=== PATIENT | male | born 1980 | race Caucasian/White ===

== ENCOUNTER 2018-12-27 19:45 | Emergency (ER) | payer OTHER, SELFPAY ==
[2018-12-27 19:47] VITALS: BP 154/96; PULSE 127; PULSE 130; RESP 18; RESP 19; TEMP 37.8; O2SAT 96; BMI 29.5
[2018-12-27 20:00] VITALS: O2SAT 97
--- NOTE | 2018-12-27 20:08 | CT_ITS ---
STUDY: CTA CHEST REASON FOR EXAM: Male, 38 years old. Pneumonia, cough short of breath RADIATION DOSAGE (If Supplied By Facility): CTDIvol = ( 20.27 ) mGy, DLP = ( 604.01 ) mGycm TECHNIQUE: The examination was performed with the intravenous administration of 100 IV Isovue 370. Post-processing of the angiographic images was performed, with multiplanar reformation and 3D reconstruction. Individualized dose optimization techniques were used for this CT. COMPARISON: None. FINDINGS: The exam is significantly limited due to respiratory motion. Normal enhancement of the main pulmonary artery and right and left pulmonary arteries. Evaluation of the more peripheral pulmonary arteries is nondiagnostic due to respiratory motion. Normal thoracic aorta and visualized great vessels. There is no demonstrated aortic dissection. There is a moderate pericardial effusion. There is enhancement and thickening of the pericardium.. There is a 1.5 cm right pericardial necrotic lymph node. There is a small less than 1 cm adjacent lymph node. There are multiple subcentimeter mediastinal lymph nodes. There are small bilateral pleural effusions with bibasilar subsegmental atelectasis. There is mild left lower lobe infiltrate. There are small subcentimeter mediastinal nodes. There is mild left lower lobe pulmonary infiltrate. There is respiratory motion artifact.. Normal chest wall structures. Normal osseous structures. There is splenomegaly, spleen is incompletely included on the [id number]. There is right lower lobe calcified granuloma. CT/CTA Chest W/WO Contrast IMPRESSION: Left lower lobe infiltrate consolidation and atelectasis likely pneumonia Small bilateral pleural effusions Moderate pericardial effusion with thickening and enhancement of the pericardium likely infectious pericarditis, findings would be suspicious for constrictive peridiverticulitis . Cardiac echo is recommended to further evaluate. No pulmonary emboli within the main pulmonary arteries evaluation of the more distal pulmonary arteries is nondiagnostic due to respiratory motion Right pericardial likely necrotic lymph nodes likely reactive 1.5 cm right hilar lymph node likely reactive, six-month follow-up recommended multiple small subcentimeter mediastinal lymph nodes likely reactive which could be also evaluated in 6 months Splenomegaly Electronically Signed: Bj Simms, at 21:44 EDT Tel , Service support ,
--- NOTE | 2018-12-27 20:08 | EKG12_ITS ---
Test Reason : Blood Pressure : / mmHG Vent. Rate : 114 BPM Atrial Rate : 114 BPM P-R Int : 130 ms QRS Dur : 082 ms QT Int : 338 ms P-R-T Axes : 037 -01 070 degrees QTc Int : 465 ms Sinus tachycardia Nonspecific T wave abnormality Abnormal ECG Confirmed by NICOLAS ZHU ([id number]), newspaper photo editor RGISELDA LEE ([id number]) on 12/30/2018 11:02:34 AM Referred By: EDMAR Confirmed By:NICOLAS ZHU
--- NOTE | 2018-12-27 20:13 | ED.RN ---
NO OLD EKGS IN MUSE
[2018-12-27] MEDS: Aspirin 325 MG Tablet PO (20:22)
[2018-12-27] MEDS: 0.9% Normal Saline 1,000 ML 1000 ML IV (20:23)
[2018-12-27 20:49] VITALS: BP 128/81; PULSE 117; RESP 19; TEMP 37.7; O2SAT 97
[2018-12-27 21:07] LABS: Absolute Lymphocyte Count 0.83 X10^3/ul (0.83-4.51); Absolute Neutrophil Count 10.5 X10^3/uL (2.0-7.7); Basophil# 0.02 X10^3/uL; Basophil% 0.2 % (0-1); Eosinophil# 0.08 X10^3/uL; Eosinophils% 0.6 % (0-5); Hematocrit 37.6 % (40-54); Hemoglobin 12.6 g/dl (13.0-16.5); Lymphocyte # 0.83 X10^3/ul (4.0); Lymphocyte % 6.3 % (19-41); Mean Corp Hgb Conc 33.5 g/gl (32-36); Mean Corpuscular Hgb 29.5 pg (27.0-32.0); Mean Corpuscular Volume 88.1 fL (80-94); Mean Platelet Vol. 11.5 fl (6.2-12.0); Monocyte# 1.69 X10^3/uL; Monocyte% 12.8 % (0-10); Neutrophil # 10.53 X10^3/uL (2.7-7.7); Neutrophil % 79.5 % (47-70); Platelet Count 330 K/mm3 (150-450); RBC Distribution Width CV 11.4 % (11.6-14.6); RBC Distribution Width SD 36.3 fl (35.1-43.9); Red Blood Count 4.27 M/mm3 (4.6-6.2); White Blood Count 13.2 K/mm3 (4.4-11.0)
[2018-12-27 21:08] LABS: Anion Gap 5 (5-15); BUN 8 mg/dL (7-18); BUN/Creat Ratio 7.7 RATIO (10-20); Calcium,Total 8.7 mg/dL (8.5-10.1); Chloride 105 mmol/L (98-107); Creatinine, Serum 1.04 mg/dL (0.70-1.30); Differential Indicated SCAN CRITERIA MET; EST Glomerular Filtration Rate 85 mL/min (>60); Est Glom Filt Rate - Afr Amer 102 mL/min (>60); Estimated Creatinine Clearance 99.44 ml/min; Glucose 113 mg/dL (74-106); POSITIVE COUNT NO; POSITIVE DIFFERENTIAL YES; POSITIVE MORPHOLOGY NO; Potassium 3.5 mmol/L (3.5-5.1); Sodium Level 138 mmol/L (136-145)
--- NOTE | 2018-12-27 21:17 | ED.DCSUM_ITS ---
- ER Visit Summary Date of Service: 12/27/18 Chief Complaint: Chest pain, shortness of breath History of Present Illness: The patient is a 38 M presenting with chest pain, shortness of breath. This has been ongoing for the past week. He was seen at urgent care on Wednesday diagnosed with pneumonia. He was started on a Z-Ash at that time. He states he has had chest pain with coughing, bending over, deep inspiration. He has had subjective fevers at home. He complains of heart racing. He has a nonproductive cough. Denies other complaints. Physical Examination: Vitals are stable. Temperature 100.1. Pulse 130. Alert no acute distress. HEENT exam is unremarkable. Neck is supple. Lungs are clear and equal bilaterally. Heart is regular and tachycardic Abdomen is soft nontender nondistended. Extremities are unremarkable. Skin is warm and dry. No focal neurologic deficit. Remainder of exam is unremarkable. Emergency Department Course and Treatment: Patient was given aspirin on arrival. He was given IV fluids, Tylenol. EKG is sinus tachycardia rate of 114 with lateral T wave inversion. White count is 13.2, hemoglobin 12.6. Glucose is 113. Troponin is negative. Lactic acid is normal. Blood cultures were sent. CTA chest shows left lower lobe infiltrate consolidation and atelectasis likely pneumonia. Small bilateral pleural effusions. Moderate pericardial effusion with thickening and enhancement of the pericardium likely infectious pericarditis, findings would be suspicious for constrictive peridiverticulitis . Cardiac echo is recommended to further evaluate. No pulmonary emboli within the main pulmonary arteries evaluation of the more distal pulmonary arteries is nondiagnostic due to respiratory motion Right pericardial likely necrotic lymph nodes likely reactive 1.5 cm right hilar lymph node likely reactive, six-month follow-up recommended multiple small subcentimeter mediastinal lymph nodes likely reactive which could be also evaluated in 6 months. Splenomegaly. After IV fluids and Tylenol, his heart rate is now 95, blood pressure 120/83. He is feeling improved. Discussed with Dr. Cross who recommends tertiary care transfer. Patient was given vancomycin and Zosyn IV. Discussed with [facility]. Patient will be transferred. Disposition: Transfer to [facility] Impression: Pneumonia, pericardial effusion, pericarditis This note was generated with [employer] software. It may contain incorrect words, spelling, and punctuation that were not noted in review of the chart prior to signing ED Disposition - Plan for ED Patient: Referrals: Care Physician,No Primary [Primary Care Provider] -
[2018-12-27] MEDS: Acetaminophen 500 MG Tablet 1000 MG PO (21:28)
[2018-12-27 21:49] VITALS: BP 116/78; PULSE 98; RESP 18; TEMP 37.2; O2SAT 95
[2018-12-27 22:05] LABS: Differential Comment SCANNED
[2018-12-27 22:21] LABS: Erythrocyte Sedimentation Rate 35 mm/hr (0-15)
[2018-12-27 22:50] LABS: Lactic Acid 1.2 mmol/L (0.4-2.0)
[2018-12-27 23:00] VITALS: BP 120/83; PULSE 89; RESP 14; TEMP 37; O2SAT 96
[2018-12-28] VITALS: BP 119/73; PULSE 86; RESP 17; TEMP 37.1; O2SAT 96
[2018-12-28 00:13] VITALS: BP 112/70; PULSE 83; RESP 19; TEMP 37.1; O2SAT 95
== END 2018-12-28 00:51 | disposition short-term general hospital (02) ==
LOC: ED 20:15
PROVIDERS: Emergency Provider Emergency Medicine
DX: J18.9 Pneumonia, unspecified organism (principal); I31.3 Pericardial effusion (noninflammatory); R16.1 Splenomegaly, not elsewhere classified; R00.0 Tachycardia, unspecified
CPT/HCPCS: 71275; 80048; 83605; 84484; 85025; 85652; 87040; 93005; 96361; 96365; 96367; 99285; J7030; J7040; J7050; Q9967; A4216

== ENCOUNTER → 2025-06-07 | Outpatient (CLI) | payer OTHER, SELFPAY ==
--- NOTE | 2025-06-07 19:02 | CT_ITS ---
PROCEDURE: SINUS/FACIAL BONE 06/07/2025 REASON FOR EXAM: OTHER CHRONIC SINUSITIS TECHNIQUE: Procedure Code: CTSI Modality: CT Procedure: SINUS/FACIAL BONE Coronal and Sagittal reconstruction series were provided. One or more dose reduction techniques were used (e.g., Automated exposure control, adjustment of the mA and/or kV according to patient size, use of iterative reconstruction technique). RADIATION DOSE SUMMARY: CTDlvol: 33.06 mGy DLP: 945.42 mGycm COMPARISON: None. FINDINGS: Frontal: Mild mucosal thickening with obstruction of the frontoethmoidal recesses. Ethmoid: Moderate lobulated mucosal thickening. Sphenoid: Extensive mucosal thickening with obstruction of the ethmoidal sphenoidal recesses. Maxillary: Status post bilateral uncinectomy. Mucosal thickening and air-fluid levels of the maxillary sinuses. Turbinates: No ronan bullosa. Moderate mucosal thickening. Nasal Septum: Midline. No spurs. Mastoids/Middle Ears: Clear. The orbits are unremarkable. No visualized acute intracranial abnormalities. CT/Sinus/Facial Bone IMPRESSION: Extensive paranasal mucosal thickening as detailed without bone remodeling. Reading Location: [facility]
--- OUTSIDE RECORDS SUMMARY | 2025-06-07 19:02 | XMS RPT_ITS | CCD ---
Author Organization [facility] Care Team Providers Care Surgical Assistant Certified Name Role Phone ESTER ESQUIVEL (MIKE) Referring Unavailable PHYSICIAN, NONE Primary Care Unavailable LAYTON RODRIGUEZ DO Attending Unavailable Results Test Name Value Interpretation Reference Range Facility .GFR 05-30-2024 GFR >60 [facility] MAIN Comment on above: Result Comment: GFR Population mean for , Non- Americans Ages 20-29 = 116 mL/min/1.73 sq.m. Ages 30-39 = 107 mL/min/1.73 sq.m. Ages 40-49 = 99 mL/min/1.73 sq.m. Ages 50-59 = 93 mL/min/1.73 sq.m. Ages 60-69 = 85 mL/min/1.73 sq.m. Ages 70+ = 75 mL/min/1.73 sq.m. Chronic Kidney Disease: Less than 60 mL/min/1.73 square meters End Stage Renal Disease: Less than 15 mL/min/1.73 square meters Performed By: #### G , CMP #### [place] [address] GFR Non- >60 [facility] MAIN Comment on above: Result Comment: GFR Population mean for , Non- Americans Ages 20-29 = 116 mL/min/1.73 sq.m. Ages 30-39 = 107 mL/min/1.73 sq.m. Ages 40-49 = 99 mL/min/1.73 sq.m. Ages 50-59 = 93 mL/min/1.73 sq.m. Ages 60-69 = 85 mL/min/1.73 sq.m. Ages 70+ = 75 mL/min/1.73 sq.m. Chronic Kidney Disease: Less than 60 mL/min/1.73 square meters End Stage Renal Disease: Less than 15 mL/min/1.73 square meters Performed By: #### G FR, CMP #### [place] [id number] CMPon 05-30-2024 Albumin Level 4.1 G/dL Normal 3.2-4.8 [facility] MAIN Comment on above: Performed By: #### G FR, CMP #### [place] [id number] Albumin/Globulin [Mass ratio] 1.3 {ratio} Normal 0.9-1.6 [facility] MAIN Comment on above: Performed By: #### G FR, CMP #### [place] [id number] ALP [Catalytic activity/Vol] 81 U/L Normal 38-126 [facility] MAIN Comment on above: Performed By: #### G , CMP #### [place] [id number] ALT [Catalytic activity/Vol] 41 U/L Normal 12-55 [facility]IN Comment on above: Performed By: #### G FR, CMP #### [place] [id number] AST [Catalytic activity/Vol] 20 U/L Normal 8-34 [facility]IN Comment on above: Performed By: #### G FR, CMP #### [place] [id number] Bili Total 0.50 mg/dL Normal 0.20-1.20 [facility] MAIN Comment on above: Result Comment: Use of this assay is not recommended for patients undergoing treatment with eltrombopag due to the potential for falsely elevated results. Performed By: #### G FR, CMP #### [place] [id number] BUN/Creatinine Ratio 14.7 ratio Normal 10.0-22.0 [facility] MAIN Comment on above: Performed By: #### G FR, CMP #### [place] [id number] Calcium [Mass/Vol] 9.9 mg/dL Normal 8.7-10.4 [facility] MAIN Comment on above: Performed By: #### G FR, CMP #### [address] [address] Chloride [Moles/Vol] 107 mmol/L Normal 98-110 [facility] MAIN Comment on above: Performed By: #### G FR, CMP #### [address] [address] CO2 [Moles/Vol] 29 mmol/L Normal 22-32 [facility] MAIN Comment on above: Performed By: #### G FR, CMP #### [address] [address] Creatinine [Mass/Vol] 1.09 mg/dL Normal 0.60-1.40 [facility] MAIN Comment on above: Result Comment: Test ing performed on [employer] analyzer using enzymatic creatinine methodology. Performed By: #### G , CMP #### [address] [address] Electrolyte Balance 7.0 mEq/L Normal 4.0-15.0 [facility] MAIN Comment on above: Performed By: #### G FR, CMP #### [address] [address] Globulin 3.1 G/dL Normal 1.5-3.8 [facility] MAIN Comment on above: Performed By: #### G FR, CMP #### [address] [address] Glucose [Mass/Vol] 101 mg/dL Normal 70-110 [facility] MAIN Comment on above: Performed By: #### G FR, CMP #### [address] [address] Potassium [Moles/Vol] 4.4 mmol/L Normal 3.5-5.0 [facility] MAIN Comment on above: Performed By: #### G FR, CMP #### [address] [address] Sodium [Moles/Vol] 143 mmol/L Normal 136-145 [facility] MAIN Comment on above: Performed By: #### G FR, CMP #### [place] [id number] Total Protein 7.2 G/dL Normal 5.7-8.2 [facility] MAIN Comment on above: Result Comment: No te - New Reference Range in effect 20 Performed By: #### G , CMP #### [place] [address] [place] [address] Urea nitrogen [Mass/Vol] 16.0 mg/dL Normal 8.0-22.0 [facility] MAIN Comment on above: Performed By: #### G FR, CMP #### [place] [address] [place] [address] MRI CARDIAC MORPHOLOGY AND F [facility] W+W/O CONTon 03-01-2019 MRI CARDIAC MORPHOLOGY AND [facility] W+W/O CONT ORIGINAL Indication: Pericarditis Comparison: 12/28/2018 Technique: SSFP, 2XIR and 3XIR images were obtained. 38 CC Multihance contrast given and First pass perfusion images, EGE and LGE (PSIR and MagIR) images were obtained. Findings: Septal wall thickness: 10.3 mm PW thickness: 6.6 mm LVEDD: 54.5 mm AORTA (@ level of MPA): 30 mm MPA (@ level of Aorta): 27 mm LV Systolic function appears normal . EF (visual estimation) is 55-60 % RV systolic function appears normal No regional wall motion abnormalities noted. Septal bounce seen in prior study is not seen in the current study. Valves: No significant abnormalities Masses: None seen Pericardial thickening: None. Pericardial thickness 2 mm. Appears significantly improved compared to prior study Pericardial effusion: None. Small effusion seen in prior study has resolved. T1 images unremarkable. T2 images Minimal hyperintensity in pericardium. Significantly improved compared to prior study First pass images show normal perfusion Post contrast images minimal delayed enhancement in the pericardium. No myocardial involvement. The pericardial hyperenhancement is much improved compared to prior study. Conclusion: 1. Mild resolving pericarditis. The pericardial inflammation and thickening seen in prior study is significantly improved in current study. 2. No conclusive evidence of constriction. Septal bounce seen in prior study has resolved. TAGGING not done. 3. Normal systolic function. Interpreted By: Wes Dubois MD Preliminary Report By: Wes Dubois MD Electronically Signed By: Wes Dubois MD Dictated Date: 03/01/2019 8:23:17 PM Prelim Date: 03/01/2019 8:23:17 PM Sign Date: 03/01/2019 8:46:47 PM [facility] ([place]) CFUNGBon 01-27-2019 CFUNGB . MICRO - Microbiology PROCEDURE: Blood Culture (fungal and bacterial) [*1] SOURCE: Blood BODY SITE: COLLECTED DATE/TIME: 12/28/2018 04:57 EDT RECEIVED DATE/TIME: 12/28/2018 08:11 EDT START DATE/TIME: 12/28/2018 08:11 EDT FREE TEXT SOURCE: FINAL REPORTS Final Report [] Verified Date/Time/Personnel: 01/27/2019 16:10 EDT Blood Culture with fungus: No growth at 4 weeks. PRELIMINARY REPORTS Preliminary Report [] Verified Date/Time/Personnel: 12/28/2018 09:00 EDT Culture has been received in lab and is no growth to date. Culture will be held for four weeks. Performing Locations *1: This test was performed at: [address], [address] [place] [address] ([place]) Comment on above: Performed By: #### C BC, ADIFF, ANEU, TROPI, MG, PHOS, CMP, GFR, DRUGS, ESR, HIV, LMERLY, COXAAB, MYCO, COXBAB #### [place] [address] [facility] [place] B Type 1 <1:10 [facility]) Comment on above: Result Comment: Refe rence range: <1:10 Performed By: #### C BC, ADIFF, ANEU, TROPI, MG, PHOS, CMP, GFR, DRUGS, ESR, HIV, LMERLY, COXAAB, MYCO, COXBAB #### [place] [address] [place] B Type 2 1:20 [facility] ([place]) Comment on above: Result Comment: Refe rence range: <1:10 Performed By: #### C BC, ADIFF, ANEU, TROPI, MG, PHOS, CMP, GFR, DRUGS, ESR, HIV, LMERLY, COXAAB, MYCO, COXBAB #### [place] [address] [place] B Type 3 <1:10 Normal Replaced by [facility] ([place]) Comment on above: Result Comment: Refe rence range: <1:10 Performed By: #### C BC, ADIFF, ANEU, TROPI, MG, PHOS, CMP, GFR, DRUGS, ESR, HIV, LMERLY, COXAAB, MYCO, COXBAB #### [place] [address] [place] B Type 4 <1:10 Normal Replaced by [facility] ([place]) Comment on above: Result Comment: Refe rence range: <1:10 Performed By: #### C BC, ADIFF, ANEU, TROPI, MG, PHOS, CMP, GFR, DRUGS, ESR, HIV, LMERLY, COXAAB, MYCO, COXBAB #### [place] [address] [place] B Type 5 1:20 Normal Replaced by [facility] ([place]) Comment on above: Result Comment: Refe rence range: <1:10 Performed By: #### C BC, ADIFF, ANEU, TROPI, MG, PHOS, CMP, GFR, DRUGS, ESR, HIV, LMERLY, COXAAB, MYCO, COXBAB #### [place] [address] [place] B Type 6 <1:10 Normal Replaced by [facility] ([place]) Comment on above: Result Comment: Refe rence range: <1:10 (NOTE) INTERPRETIVE INFORMATION: [place] B Virus Single positive antibody titers of greater than or equal to 1:80 may indicate past or current infection. Sero- conversion or an increase in titers between acute and convalescent sera of at least fourfold is considered strong evidence of current or recent infection. Performed by [facility], [address] [place] [id number] [email or web address], Ruben Harmon MD, Lab. Director Performed By: #### C BC, ADIFF, ANEU, TROPI, MG, PHOS, CMP, GFR, DRUGS, ESR, HIV, LMERLY, COXAAB, MYCO, COXBAB #### [address] [address] HISTOAGon 2019 Histoplasma Ag Ur None detected. [facility] ([place]) Comment on above: Result Comment: (NOT E) Reference interval: None Detected Results reported as ng/mL in 0.4 - 19.0 ng/mL range. Results above the limit of detection but below 0.4 ng/mL are reported as 'Positive, Below the Limit of Quantification'. Results above 19.0 ng/mL are reported as 'Positive, Above the Limit of Quantification'. This test was developed and its performance characteristics determined by [employer]. It has not been cleared or approved by the FDA; however, FDA clearance or approval is not currently required for clinical use. The results are not intended to be used as the sole means for clinical diagnosis or patient management decisions. Test performed by [employer], [address] [place] [address] [place] [address] Performed By: #### C BC, ADIFF, ANEU, TROPI, MG, PHOS, CMP, GFR, DRUGS, ESR, HIV, LMERLY, COXAAB, MYCO, COXBAB #### [address] [address] Histoplasma Ag Ur None detected. Normal [facility] ([place]) Comment on above: Result Comment: (NOT E) Reference interval: None Detected Results reported as ng/mL in 0.4 - 19.0 ng/mL range. Results above the limit of detection but below 0.4 ng/mL are reported as 'Positive, Below the Limit of Quantification'. Results above 19.0 ng/mL are reported as 'Positive, Above the Limit of Quantification'. This test was developed and its performance characteristics determined by [employer]. It has not been cleared or approved by the FDA; however, FDA clearance or approval is not currently required for clinical use. The results are not intended to be used as the sole means for clinical diagnosis or patient management decisions. Test performed by [employer], [address] [facility] [place] [address] Performed By: #### C BC, ADIFF, ANEU, TROPI, MG, PHOS, CMP, GFR, DRUGS, ESR, HIV, LMERLY, COXAAB, MYCO, COXBAB #### [address] [address] CBLon 01-02-2019 CBL . MICRO - Microbiology PROCEDURE: Blood Culture (bacterial) [*1] SOURCE: Blood BODY SITE: COLLECTED DATE/TIME: 12/28/2018 04:57 EDT RECEIVED DATE/TIME: 12/28/2018 08:11 EDT START DATE/TIME: 12/28/2018 08:11 EDT FREE TEXT SOURCE: FINAL REPORTS Final Report [] Verified Date/Time/Personnel: 01/02/2019 08:59 EDT Blood Culture: No Growth at 5 days. PRELIMINARY REPORTS Preliminary Report [] Verified Date/Time/Personnel: 12/28/2018 09:00 EDT Culture has been received in lab and is no growth to date. Routine cultures are held for 5 days. Performing Locations *1: This test was performed at: [address], [address] [place] [address] ([place]) Comment on above: Performed By: #### C BC, ADIFF, ANEU, TROPI, MG, PHOS, CMP, GFR, DRUGS, ESR, HIV, LMERLY, COXAAB, MYCO, COXBAB #### [address] [address] MYCOon 01-02-2019 Mycoplasma IgG Positive [facility] ([place]) Comment on above: Result Comment: INTE RPRETATION OF MYCOPLASMA BY EIA (Effective 08/28/04): Negative No detectable antibodies to M. pneumoniae. Indicates absence of current or previous infection. Positive Reactive for antibodies to M. pneumoniae. Indicates a past or recent infection. Equivocal Equivocal for antibodies to M. pneumoniae. Repeat testing by an alternate method suggested. Performed By: #### C BC, ADIFF, ANEU, TROPI, MG, PHOS, CMP, GFR, DRUGS, ESR, HIV, LMERLY, COXAAB, MYCO, COXBAB #### [address] [address] COXAon 01-01-2019 [place] A9 Ab <1:8 Normal Counts include 234 beds at the [facility] ([place]) Comment on above: Result Comment: Refe rence range: <1:8 (NOTE) INTERPRETIVE INFORMATION: [place] A Serotype 9 Titer Single positive antibody titers of greater than 1:32 may indicate past or current infection. Seroconversion or an increase in titers between acute and convalescent sera of at least fourfold is considered strong evidence of current or recent infection. Performed by [facility], [address] [place] [id number] [email or web address], Ruben Harmon MD, Lab. Director Performed By: #### C BC, ADIFF, ANEU, TROPI, MG, PHOS, CMP, GFR, DRUGS, ESR, HIV, LMERLY, COXAAB, MYCO, COXBAB #### [place] [id number] .Auto Diffon 12-31-2018 Ammonia (P) [Mass/Vol] 0.60 10 3/mcL Normal 0.09-1.40 [facility] ([place]) Comment on above: Performed By: #### C BC, ADIFF, ANEU, TROPI, MG, PHOS, CMP, GFR, DRUGS, ESR, HIV, LMERLY, COXAAB, MYCO, COXBAB #### [place] [id number] Basophils (Bld) [#/Vol] 0.00 10 3/mcL Normal 0.00-0.27 [facility] ([place]) Comment on above: Performed By: #### C BC, ADIFF, ANEU, TROPI, MG, PHOS, CMP, GFR, DRUGS, ESR, HIV, LMERLY, COXAAB, MYCO, COXBAB #### [place] [id number] Basophils/100 WBC (Bld) 0.8 % Normal 0.0-2.5 [facility] ([place]) Comment on above: Performed By: #### C BC, ADIFF, ANEU, TROPI, MG, PHOS, CMP, GFR, DRUGS, ESR, HIV, LMERLY, COXAAB, MYCO, COXBAB #### [address] [address] Eosinophils (Bld) [#/Vol] 0.30 10 3/mcL Normal 0.00-0.65 [facility] ([place]) Comment on above: Performed By: #### C BC, ADIFF, ANEU, TROPI, MG, PHOS, CMP, GFR, DRUGS, ESR, HIV, LMERLY, COXAAB, MYCO, COXBAB #### [address] [address] Eosinophils/100 WBC (Bld) 5.1 % Normal 0.0-6.0 [facility] ([place]) Comment on above: Performed By: #### C BC, ADIFF, ANEU, TROPI, MG, PHOS, CMP, GFR, DRUGS, ESR, HIV, LMERLY, COXAAB, MYCO, COXBAB #### [address] [address] Lymphocytes (Bld) [#/Vol] 1.40 10 3/mcL Normal 0.90-4.32 [facility] ([place]) Comment on above: Performed By: #### C BC, ADIFF, ANEU, TROPI, MG, PHOS, CMP, GFR, DRUGS, ESR, HIV, LMERLY, COXAAB, MYCO, COXBAB #### [address] [address] Lymphocytes/100 WBC (Bld) 26.9 % Normal 20.0-40.0 [facility] ([place]) Comment on above: Performed By: #### C BC, ADIFF, ANEU, TROPI, MG, PHOS, CMP, GFR, DRUGS, ESR, HIV, LMERLY, COXAAB, MYCO, COXBAB #### [address] [address] Monocytes/100 WBC (Bld) 11.4 % Normal 2.0-13.0 [facility] ([place]) Comment on above: Performed By: #### C BC, ADIFF, ANEU, TROPI, MG, PHOS, CMP, GFR, DRUGS, ESR, HIV, LMERLY, COXAAB, MYCO, COXBAB #### [address] [address] Neutrophils/100 WBC (Bld) 55.8 % Normal 50.0-75.0 [facility] ([place]) Comment on above: Performed By: #### C BC, ADIFF, ANEU, TROPI, MG, PHOS, CMP, GFR, DRUGS, ESR, HIV, LMERLY, COXAAB, MYCO, COXBAB #### [address] [address] .GFRon 12-31-2018 GFR >60 [facility] ([place]) Comment on above: Result Comment: GFR Population mean for , Non- Americans Ages 20-29 = 116 mL/min/1.73 sq.m. Ages 30-39 = 107 mL/min/1.73 sq.m. Ages 40-49 = 99 mL/min/1.73 sq.m. Ages 50-59 = 93 mL/min/1.73 sq.m. Ages 60-69 = 85 mL/min/1.73 sq.m. Ages 70+ = 75 mL/min/1.73 sq.m. Chronic Kidney Disease: Less than 60 mL/min/1.73 square meters End Stage Renal Disease: Less than 15 mL/min/1.73 square meters Performed By: #### C BC, ADIFF, ANEU, TROPI, MG, PHOS, CMP, GFR, DRUGS, ESR, HIV, LMERLY, COXAAB, MYCO, COXBAB #### [address] [address] GFR Non- >60 Normal [facility] ([place]) Comment on above: Result Comment: GFR Population mean for , Non- Americans Ages 20-29 = 116 mL/min/1.73 sq.m. Ages 30-39 = 107 mL/min/1.73 sq.m. Ages 40-49 = 99 mL/min/1.73 sq.m. Ages 50-59 = 93 mL/min/1.73 sq.m. Ages 60-69 = 85 mL/min/1.73 sq.m. Ages 70+ = 75 mL/min/1.73 sq.m. Chronic Kidney Disease: Less than 60 mL/min/1.73 square meters End Stage Renal Disease: Less than 15 mL/min/1.73 square meters Performed By: #### C BC, ADIFF, ANEU, TROPI, MG, PHOS, CMP, GFR, DRUGS, ESR, HIV, LMERLY, COXAAB, MYCO, COXBAB #### [place] [address] .Morphon 12-31-2018 Platelets (Bld) [#/Vol] Normal Normal [facility] ([place]) Comment on above: Performed By: #### C BC, ADIFF, ANEU, TROPI, MG, PHOS, CMP, GFR, DRUGS, ESR, HIV, LMERLY, COXAAB, MYCO, COXBAB #### [place] [address] RBC morphology finding Nom (Bld) Normal Normal [facility] ([place]) Comment on above: Performed By: #### C BC, ADIFF, ANEU, TROPI, MG, PHOS, CMP, GFR, DRUGS, ESR, HIV, LMERLY, COXAAB, MYCO, COXBAB #### [place] [address] .NEUABSon 12-31-2018 Neutrophils (Bld) [#/Vol] 3.00 10 3/mcL Normal 2.25-8.10 [facility] ([place]) Comment on above: Performed By: #### C BC, ADIFF, ANEU, TROPI, MG, PHOS, CMP, GFR, DRUGS, ESR, HIV, LMERLY, COXAAB, MYCO, COXBAB #### [place] [address] BMPon 12-31-2018 Creatinine [Mass/Vol] 1.06 mg/dL Normal 0.60-1.40 [facility] ([place]) Comment on above: Performed By: #### C BC, ADIFF, ANEU, TROPI, MG, PHOS, CMP, GFR, DRUGS, ESR, HIV, LMERLY, COXAAB, MYCO, COXBAB #### [address] [address] Urea nitrogen/Creatinine [Mass ratio] 9.4 ratio Low 10.0-22.0 [facility] ([place]) Comment on above: Performed By: #### C BC, ADIFF, ANEU, TROPI, MG, PHOS, CMP, GFR, DRUGS, ESR, HIV, LMERLY, COXAAB, MYCO, COXBAB #### [address] [address] Calcium [Mass/Vol] 8.0 mg/dL Low 8.4-10.1 Replaced by [facility] ([place]) Comment on above: Performed By: #### C BC, ADIFF, ANEU, TROPI, MG, PHOS, CMP, GFR, DRUGS, ESR, HIV, LMERLY, COXAAB, MYCO, COXBAB #### [address] [address] Chloride [Moles/Vol] 110 mmol/L Normal 98-110 [facility] ([place]) Comment on above: Performed By: #### C BC, ADIFF, ANEU, TROPI, MG, PHOS, CMP, GFR, DRUGS, ESR, HIV, LMERLY, COXAAB, MYCO, COXBAB #### [address] [address] CO2 [Moles/Vol] 28 mmol/L Normal 22-32 Counts include 234 beds at the [facility] ([place]) Comment on above: Performed By: #### C BC, ADIFF, ANEU, TROPI, MG, PHOS, CMP, GFR, DRUGS, ESR, HIV, LMERLY, COXAAB, MYCO, COXBAB #### [address] [address] Electrolyte Balance 6.0 mEq/L Normal 4.0-15.0 [facility] ([place]) Comment on above: Performed By: #### C BC, ADIFF, ANEU, TROPI, MG, PHOS, CMP, GFR, DRUGS, ESR, HIV, LMERLY, COXAAB, MYCO, COXBAB #### [place] [address] Glucose [Mass/Vol] 89 mg/dL Normal 70-110 Replaced by [facility] ([place]) Comment on above: Performed By: #### C BC, ADIFF, ANEU, TROPI, MG, PHOS, CMP, GFR, DRUGS, ESR, HIV, LMERLY, COXAAB, MYCO, COXBAB #### [place] [id number] Potassium [Moles/Vol] 3.9 mmol/L Normal 3.5-5.0 [facility] ([place]) Comment on above: Performed By: #### C BC, ADIFF, ANEU, TROPI, MG, PHOS, CMP, GFR, DRUGS, ESR, HIV, LMERLY, COXAAB, MYCO, COXBAB #### [place] [address] Sodium [Moles/Vol] 144 mmol/L Normal 136-145 Replaced by [facility] ([place]) Comment on above: Performed By: #### C BC, ADIFF, ANEU, TROPI, MG, PHOS, CMP, GFR, DRUGS, ESR, HIV, LMERLY, COXAAB, MYCO, COXBAB #### [place] [address] Urea nitrogen [Mass/Vol] 10.0 mg/dL Normal 8.0-22.0 [facility] ([place]) Comment on above: Performed By: #### C BC, ADIFF, ANEU, TROPI, MG, PHOS, CMP, GFR, DRUGS, ESR, HIV, LMERLY, COXAAB, MYCO, COXBAB #### [address] [address] CBCon 12-31-2018 Erythrocyte distribution width (RBC) [Ratio] 12.2 % Normal 11.5-15.5 [facility] ([place]) Comment on above: Performed By: #### C BC, ADIFF, ANEU, TROPI, MG, PHOS, CMP, GFR, DRUGS, ESR, HIV, LMERLY, COXAAB, MYCO, COXBAB #### [address] [address] Hematocrit (Bld) [Volume fraction] 35.0 % Low 40.0-52.0 [facility] ([place]) Comment on above: Performed By: #### C BC, ADIFF, ANEU, TROPI, MG, PHOS, CMP, GFR, DRUGS, ESR, HIV, LMERLY, COXAAB, MYCO, COXBAB #### [place] [id number] Hemoglobin (Bld) [Mass/Vol] 12.0 G/dL Low 13.0-17.5 [facility] ([place]) Comment on above: Performed By: #### C BC, ADIFF, ANEU, TROPI, MG, PHOS, CMP, GFR, DRUGS, ESR, HIV, LMERLY, COXAAB, MYCO, COXBAB #### [address] [address] MCH (RBC) [Entitic mass] 29.8 pg Normal 27.0-33.0 [facility] ([place]) Comment on above: Performed By: #### C BC, ADIFF, ANEU, TROPI, MG, PHOS, CMP, GFR, DRUGS, ESR, HIV, LMERLY, COXAAB, MYCO, COXBAB #### [address] [address] MCHC (RBC) [Mass/Vol] 34.3 G/dL Normal 32.0-36.0 [facility] ([place]) Comment on above: Performed By: #### C BC, ADIFF, ANEU, TROPI, MG, PHOS, CMP, GFR, DRUGS, ESR, HIV, LMERLY, COXAAB, MYCO, COXBAB #### [place] [id number] MCV (RBC) [Entitic vol] 86.7 fL Normal 81.0-100.0 [facility] ([place]) Comment on above: Performed By: #### C BC, ADIFF, ANEU, TROPI, MG, PHOS, CMP, GFR, DRUGS, ESR, HIV, LMERLY, COXAAB, MYCO, COXBAB #### [address] [address] Platelet mean volume (Bld) [Entitic vol] 9.8 fL Normal 6.4-10.5 [facility] ([place]) Comment on above: Performed By: #### C BC, ADIFF, ANEU, TROPI, MG, PHOS, CMP, GFR, DRUGS, ESR, HIV, LMERLY, COXAAB, MYCO, COXBAB #### [place] [id number] Platelets (Bld) [#/Vol] 314 10 3/mcL Normal 150-450 [facility] ([place]) Comment on above: Performed By: #### C BC, ADIFF, ANEU, TROPI, MG, PHOS, CMP, GFR, DRUGS, ESR, HIV, LMERLY, COXAAB, MYCO, COXBAB #### [place] [address] RBC (Bld) [#/Vol] 4.03 10 6/mcL Low 4.50-6.00 [facility] ([place]) Comment on above: Performed By: #### C BC, ADIFF, ANEU, TROPI, MG, PHOS, CMP, GFR, DRUGS, ESR, HIV, LMERLY, COXAAB, MYCO, COXBAB #### [address] [address] WBC (Bld) [#/Vol] 5.30 10 3/mcL Normal 4.50-10.80 [facility] ([place]) Comment on above: Performed By: #### C BC, ADIFF, ANEU, TROPI, MG, PHOS, CMP, GFR, DRUGS, ESR, HIV, LMERLY, COXAAB, MYCO, COXBAB #### [address] [address] .Manual Diffon 12-30-2018 Bands 2.0 % Normal 0.0-5.0 [facility] ([place]) Comment on above: Performed By: #### C BC, ADIFF, ANEU, TROPI, MG, PHOS, CMP, GFR, DRUGS, ESR, HIV, LMERLY, COXAAB, MYCO, COXBAB #### [address] [address] Basophil %, Manual 1.0 % Normal 0.0-2.5 Replaced by [facility] ([place]) Comment on above: Performed By: #### C BC, ADIFF, ANEU, TROPI, MG, PHOS, CMP, GFR, DRUGS, ESR, HIV, LMERLY, COXAAB, MYCO, COXBAB #### [address] [address] Basophil, Abs Manual 0.06 10 3/mcL Normal 0.00-0.27 [facility] ([place]) Comment on above: Performed By: #### C BC, ADIFF, ANEU, TROPI, MG, PHOS, CMP, GFR, DRUGS, ESR, HIV, LMERLY, COXAAB, MYCO, COXBAB #### [address] [address] Cells Counted 100 Normal [facility] ([place]) Comment on above: Performed By: #### C BC, ADIFF, ANEU, TROPI, MG, PHOS, CMP, GFR, DRUGS, ESR, HIV, LMERLY, COXAAB, MYCO, COXBAB #### [address] [address] Eosinophil %, Manual 4.0 % Normal 0.0-6.0 [facility] ([place]) Comment on above: Performed By: #### C BC, ADIFF, ANEU, TROPI, MG, PHOS, CMP, GFR, DRUGS, ESR, HIV, LMERLY, COXAAB, MYCO, COXBAB #### [address] [address] Eosinophil, Abs Manual 0.24 10 3/mcL Normal 0.00-0.65 [facility] ([place]) Comment on above: Performed By: #### C BC, ADIFF, ANEU, TROPI, MG, PHOS, CMP, GFR, DRUGS, ESR, HIV, LMERLY, COXAAB, MYCO, COXBAB #### [address] [address] Lymphocyte %, Manual 31.0 % Normal 20.0-40.0 [facility] ([place]) Comment on above: Performed By: #### C BC, ADIFF, ANEU, TROPI, MG, PHOS, CMP, GFR, DRUGS, ESR, HIV, LMERLY, COXAAB, MYCO, COXBAB #### [address] [address] Lymphocyte, Abs Manual 1.89 10 3/mcL Normal 0.90-4.32 [facility] ([place]) Comment on above: Performed By: #### C BC, ADIFF, ANEU, TROPI, MG, PHOS, CMP, GFR, DRUGS, ESR, HIV, LMERLY, COXAAB, MYCO, COXBAB #### [address] [address] Monocyte %, Manual 8.0 % Normal 2.0-13.0 Replaced by [facility] ([place]) Comment on above: Performed By: #### C BC, ADIFF, ANEU, TROPI, MG, PHOS, CMP, GFR, DRUGS, ESR, HIV, LMERLY, COXAAB, MYCO, COXBAB #### [address] [address] Monocyte, Abs Manual 0.49 10 3/mcL Normal 0.09-1.40 [facility] ([place]) Comment on above: Performed By: #### C BC, ADIFF, ANEU, TROPI, MG, PHOS, CMP, GFR, DRUGS, ESR, HIV, LMERLY, COXAAB, MYCO, COXBAB #### [address] [address] Myelocyte 1.0 % Normal [facility] ([place]) Comment on above: Performed By: #### C BC, ADIFF, ANEU, TROPI, MG, PHOS, CMP, GFR, DRUGS, ESR, HIV, LMERLY, COXAAB, MYCO, COXBAB #### [address] [address] Neutrophil %, Manual 53.0 % Normal 50.0-75.0 [facility] ([place]) Comment on above: Performed By: #### C BC, ADIFF, ANEU, TROPI, MG, PHOS, CMP, GFR, DRUGS, ESR, HIV, LMERLY, COXAAB, MYCO, COXBAB #### [place] [address] Neutrophil, Abs Manual 3.35 10 3/mcL Normal 2.25-8.10 [facility] ([place]) Comment on above: Performed By: #### C BC, ADIFF, ANEU, TROPI, MG, PHOS, CMP, GFR, DRUGS, ESR, HIV, LMERLY, COXAAB, MYCO, COXBAB #### [place] [address] .Morphon 12-30-2018 Platelets (Bld) [#/Vol] Normal Normal [facility] ([place]) Comment on above: Performed By: #### C BC, ADIFF, ANEU, TROPI, MG, PHOS, CMP, GFR, DRUGS, ESR, HIV, LMERLY, COXAAB, MYCO, COXBAB #### [place] [address] RBC morphology finding Nom (Bld) Normal Normal [facility] ([place]) Comment on above: Performed By: #### C BC, ADIFF, ANEU, TROPI, MG, PHOS, CMP, GFR, DRUGS, ESR, HIV, LMERLY, COXAAB, MYCO, COXBAB #### [place] [address] CBCon 12-30-2018 Erythrocyte distribution width (RBC) [Ratio] 12.1 % Normal 11.5-15.5 [facility] ([place]) Comment on above: Performed By: #### C BC, ADIFF, ANEU, TROPI, MG, PHOS, CMP, GFR, DRUGS, ESR, HIV, LMERLY, COXAAB, MYCO, COXBAB #### [place] [address] Hematocrit (Bld) [Volume fraction] 33.0 % Low 40.0-52.0 [facility] ([place]) Comment on above: Performed By: #### C BC, ADIFF, ANEU, TROPI, MG, PHOS, CMP, GFR, DRUGS, ESR, HIV, LMERLY, COXAAB, MYCO, COXBAB #### [address] [address] Hemoglobin (Bld) [Mass/Vol] 11.2 G/dL Low 13.0-17.5 [facility] ([place]) Comment on above: Performed By: #### C BC, ADIFF, ANEU, TROPI, MG, PHOS, CMP, GFR, DRUGS, ESR, HIV, LMERLY, COXAAB, MYCO, COXBAB #### [address] [address] MCH (RBC) [Entitic mass] 29.8 pg Normal 27.0-33.0 [facility] ([place]) Comment on above: Performed By: #### C BC, ADIFF, ANEU, TROPI, MG, PHOS, CMP, GFR, DRUGS, ESR, HIV, LMERLY, COXAAB, MYCO, COXBAB #### [place] [id number] MCHC (RBC) [Mass/Vol] 33.9 G/dL Normal 32.0-36.0 [facility] ([place]) Comment on above: Performed By: #### C BC, ADIFF, ANEU, TROPI, MG, PHOS, CMP, GFR, DRUGS, ESR, HIV, LMERLY, COXAAB, MYCO, COXBAB #### [place] [phone] MCV (RBC) [Entitic vol] 87.8 fL Normal 81.0-100.0 [facility] ([place]) Comment on above: Performed By: #### C BC, ADIFF, ANEU, TROPI, MG, PHOS, CMP, GFR, DRUGS, ESR, HIV, LMERLY, COXAAB, MYCO, COXBAB #### [address] [address] Platelet mean volume (Bld) [Entitic vol] 9.9 fL Normal 6.4-10.5 [facility] ([place]) Comment on above: Performed By: #### C BC, ADIFF, ANEU, TROPI, MG, PHOS, CMP, GFR, DRUGS, ESR, HIV, LMERLY, COXAAB, MYCO, COXBAB #### [address] [address] Platelets (Bld) [#/Vol] 295 10 3/mcL Normal 150-450 [facility] ([place]) Comment on above: Performed By: #### C BC, ADIFF, ANEU, TROPI, MG, PHOS, CMP, GFR, DRUGS, ESR, HIV, LMERLY, COXAAB, MYCO, COXBAB #### [place] [phone] RBC (Bld) [#/Vol] 3.76 10 6/mcL Low 4.50-6.00 [facility] ([place]) Comment on above: Performed By: #### C BC, ADIFF, ANEU, TROPI, MG, PHOS, CMP, GFR, DRUGS, ESR, HIV, LMERLY, COXAAB, MYCO, COXBAB #### [place] [phone] WBC (Bld) [#/Vol] 6.10 10 3/mcL Normal 4.50-10.80 [facility] ([place]) Comment on above: Performed By: #### C BC, ADIFF, ANEU, TROPI, MG, PHOS, CMP, GFR, DRUGS, ESR, HIV, LMERLY, COXAAB, MYCO, COXBAB #### [place] [address] CRYPSon 12-30-2018 Crypto Ag Negative Normal Negative [facility] ([place]) Comment on above: Performed By: #### C BC, ADIFF, ANEU, TROPI, MG, PHOS, CMP, GFR, DRUGS, ESR, HIV, LMERLY, COXAAB, MYCO, COXBAB #### [place] [address] LMERLYon 12-30-2018 Lyme IgG/IgM AB Negative Normal NEGAT Counts include 234 beds at the [facility] ([place]) Comment on above: Result Comment: Abse nce of detectable Borrelia burgdorferi antibodies. A negative result does not exclude the possibility of Borrelia burgdorferi infection. If early Lyme disease is suspected, a second sample should be collected and tested two to four weeks later. Performed By: [facility] [address] [place] [address] Senior Software Qa Engineer: Avila Wolf#: [id number] Phone#: Performed By: #### C BC, ADIFF, ANEU, TROPI, MG, PHOS, CMP, GFR, DRUGS, ESR, HIV, LMERLY, COXAAB, MYCO, COXBAB #### [address] [address] .Auto Diffon 12-29-2018 Ammonia (P) [Mass/Vol] 0.90 10 3/mcL Normal 0.09-1.40 [facility] ([place]) Comment on above: Performed By: #### C BC, ADIFF, ANEU, TROPI, MG, PHOS, CMP, GFR, DRUGS, ESR, HIV, LMERLY, COXAAB, MYCO, COXBAB #### [address] [address] Basophils (Bld) [#/Vol] 0.00 10 3/mcL Normal 0.00-0.27 [facility] ([place]) Comment on above: Performed By: #### C BC, ADIFF, ANEU, TROPI, MG, PHOS, CMP, GFR, DRUGS, ESR, HIV, LMERLY, COXAAB, MYCO, COXBAB #### [address] [address] Basophils/100 WBC (Bld) 0.5 % Normal 0.0-2.5 [facility] ([place]) Comment on above: Performed By: #### C BC, ADIFF, ANEU, TROPI, MG, PHOS, CMP, GFR, DRUGS, ESR, HIV, LMERLY, COXAAB, MYCO, COXBAB #### [address] [address] Eosinophils (Bld) [#/Vol] 0.40 10 3/mcL Normal 0.00-0.65 [facility] ([place]) Comment on above: Performed By: #### C BC, ADIFF, ANEU, TROPI, MG, PHOS, CMP, GFR, DRUGS, ESR, HIV, LMERLY, COXAAB, MYCO, COXBAB #### [address] [address] Eosinophils/100 WBC (Bld) 4.9 % Normal 0.0-6.0 [facility] ([place]) Comment on above: Performed By: #### C BC, ADIFF, ANEU, TROPI, MG, PHOS, CMP, GFR, DRUGS, ESR, HIV, LMERLY, COXAAB, MYCO, COXBAB #### [address] [address] Lymphocytes (Bld) [#/Vol] 2.20 10 3/mcL Normal 0.90-4.32 [facility] ([place]) Comment on above: Performed By: #### C BC, ADIFF, ANEU, TROPI, MG, PHOS, CMP, GFR, DRUGS, ESR, HIV, LMERLY, COXAAB, MYCO, COXBAB #### [address] [address] Lymphocytes/100 WBC (Bld) 30.0 % Normal 20.0-40.0 [facility] ([place]) Comment on above: Performed By: #### C BC, ADIFF, ANEU, TROPI, MG, PHOS, CMP, GFR, DRUGS, ESR, HIV, LMERLY, COXAAB, MYCO, COXBAB #### [address] [address] Monocytes/100 WBC (Bld) 12.3 % Normal 2.0-13.0 [facility] ([place]) Comment on above: Performed By: #### C BC, ADIFF, ANEU, TROPI, MG, PHOS, CMP, GFR, DRUGS, ESR, HIV, LMERLY, COXAAB, MYCO, COXBAB #### [address] [address] Neutrophils/100 WBC (Bld) 52.3 % Normal 50.0-75.0 [facility] ([place]) Comment on above: Performed By: #### C BC, ADIFF, ANEU, TROPI, MG, PHOS, CMP, GFR, DRUGS, ESR, HIV, LMERLY, COXAAB, MYCO, COXBAB #### [address] [address] .GFRon 12-29-2018 GFR Non- >60 Normal [facility] ([place]) Comment on above: Result Comment: GFR Population mean for , Non- Americans Ages 20-29 = 116 mL/min/1.73 sq.m. Ages 30-39 = 107 mL/min/1.73 sq.m. Ages 40-49 = 99 mL/min/1.73 sq.m. Ages 50-59 = 93 mL/min/1.73 sq.m. Ages 60-69 = 85 mL/min/1.73 sq.m. Ages 70+ = 75 mL/min/1.73 sq.m. Chronic Kidney Disease: Less than 60 mL/min/1.73 square meters End Stage Renal Disease: Less than 15 mL/min/1.73 square meters Performed By: #### C BC, ADIFF, ANEU, TROPI, MG, PHOS, CMP, GFR, DRUGS, ESR, HIV, LMERLY, COXAAB, MYCO, COXBAB #### [address] [address] GFR >60 Normal [facility] ([place]) Comment on above: Result Comment: GFR Population mean for , Non- Americans Ages 20-29 = 116 mL/min/1.73 sq.m. Ages 30-39 = 107 mL/min/1.73 sq.m. Ages 40-49 = 99 mL/min/1.73 sq.m. Ages 50-59 = 93 mL/min/1.73 sq.m. Ages 60-69 = 85 mL/min/1.73 sq.m. Ages 70+ = 75 mL/min/1.73 sq.m. Chronic Kidney Disease: Less than 60 mL/min/1.73 square meters End Stage Renal Disease: Less than 15 mL/min/1.73 square meters Performed By: #### C BC, ADIFF, ANEU, TROPI, MG, PHOS, CMP, GFR, DRUGS, ESR, HIV, LMERLY, COXAAB, MYCO, COXBAB #### [address] [address] .NEUABSon 12-29-2018 Neutrophils (Bld) [#/Vol] 3.80 10 3/mcL Normal 2.25-8.10 [facility] ([place]) Comment on above: Performed By: #### C BC, ADIFF, ANEU, TROPI, MG, PHOS, CMP, GFR, DRUGS, ESR, HIV, LMERLY, COXAAB, MYCO, COXBAB #### [place] [address] BMPon 12-29-2018 Calcium [Mass/Vol] 8.7 mg/dL Normal 8.4-10.1 Replaced by [facility] ([place]) Comment on above: Performed By: #### C BC, ADIFF, ANEU, TROPI, MG, PHOS, CMP, GFR, DRUGS, ESR, HIV, LMERLY, COXAAB, MYCO, COXBAB #### [place] [address] Chloride [Moles/Vol] 110 mmol/L Normal 98-110 [facility] ([place]) Comment on above: Performed By: #### C BC, ADIFF, ANEU, TROPI, MG, PHOS, CMP, GFR, DRUGS, ESR, HIV, LMERLY, COXAAB, MYCO, COXBAB #### [place] [address] CO2 [Moles/Vol] 29 mmol/L Normal 22-32 Counts include 234 beds at the [facility] ([place]) Comment on above: Performed By: #### C BC, ADIFF, ANEU, TROPI, MG, PHOS, CMP, GFR, DRUGS, ESR, HIV, LMERLY, COXAAB, MYCO, COXBAB #### [place] [address] Creatinine [Mass/Vol] 0.86 mg/dL Normal 0.60-1.40 [facility] ([place]) Comment on above: Performed By: #### C BC, ADIFF, ANEU, TROPI, MG, PHOS, CMP, GFR, DRUGS, ESR, HIV, LMERLY, COXAAB, MYCO, COXBAB #### [address] [address] Electrolyte Balance 7.0 mEq/L Normal 4.0-15.0 [facility] ([place]) Comment on above: Performed By: #### C BC, ADIFF, ANEU, TROPI, MG, PHOS, CMP, GFR, DRUGS, ESR, HIV, LMERLY, COXAAB, MYCO, COXBAB #### [address] [address] Glucose [Mass/Vol] 88 mg/dL Normal 70-110 Replaced by [facility] ([place]) Comment on above: Performed By: #### C BC, ADIFF, ANEU, TROPI, MG, PHOS, CMP, GFR, DRUGS, ESR, HIV, LMERLY, COXAAB, MYCO, COXBAB #### [address] [address] Potassium [Moles/Vol] 4.3 mmol/L Normal 3.5-5.0 [facility] ([place]) Comment on above: Performed By: #### C BC, ADIFF, ANEU, TROPI, MG, PHOS, CMP, GFR, DRUGS, ESR, HIV, LMERLY, COXAAB, MYCO, COXBAB #### [address] [address] Sodium [Moles/Vol] 146 mmol/L High 136-145 Replaced by [facility] ([place]) Comment on above: Performed By: #### C BC, ADIFF, ANEU, TROPI, MG, PHOS, CMP, GFR, DRUGS, ESR, HIV, LMERLY, COXAAB, MYCO, COXBAB #### [address] [address] Urea nitrogen [Mass/Vol] 7.0 mg/dL Low 8.0-22.0 [facility] ([place]) Comment on above: Performed By: #### C BC, ADIFF, ANEU, TROPI, MG, PHOS, CMP, GFR, DRUGS, ESR, HIV, LMERLY, COXAAB, MYCO, COXBAB #### [address] [address] Urea nitrogen/Creatinine [Mass ratio] 8.1 ratio Low 10.0-22.0 [facility] ([place]) Comment on above: Performed By: #### C BC, ADIFF, ANEU, TROPI, MG, PHOS, CMP, GFR, DRUGS, ESR, HIV, LMERLY, COXAAB, MYCO, COXBAB #### [address] [address] CBCon 12-29-2018 Erythrocyte distribution width (RBC) [Ratio] 12.2 % Normal 11.5-15.5 [facility] ([place]) Comment on above: Performed By: #### C BC, ADIFF, ANEU, TROPI, MG, PHOS, CMP, GFR, DRUGS, ESR, HIV, LMERLY, COXAAB, MYCO, COXBAB #### [place] [address] Hematocrit (Bld) [Volume fraction] 31.7 % Low 40.0-52.0 [facility] ([place]) Comment on above: Performed By: #### C BC, ADIFF, ANEU, TROPI, MG, PHOS, CMP, GFR, DRUGS, ESR, HIV, LMERLY, COXAAB, MYCO, COXBAB #### [place] [phone] Hemoglobin (Bld) [Mass/Vol] 10.9 G/dL Low 13.0-17.5 [facility] ([place]) Comment on above: Performed By: #### C BC, ADIFF, ANEU, TROPI, MG, PHOS, CMP, GFR, DRUGS, ESR, HIV, LMERLY, COXAAB, MYCO, COXBAB #### [place] [phone] MCH (RBC) [Entitic mass] 29.9 pg Normal 27.0-33.0 [facility] ([place]) Comment on above: Performed By: #### C BC, ADIFF, ANEU, TROPI, MG, PHOS, CMP, GFR, DRUGS, ESR, HIV, LMERLY, COXAAB, MYCO, COXBAB #### [address] [address] MCHC (RBC) [Mass/Vol] 34.2 G/dL Normal 32.0-36.0 [facility] ([place]) Comment on above: Performed By: #### C BC, ADIFF, ANEU, TROPI, MG, PHOS, CMP, GFR, DRUGS, ESR, HIV, LMERLY, COXAAB, MYCO, COXBAB #### [address] [address] MCV (RBC) [Entitic vol] 87.5 fL Normal 81.0-100.0 [facility] ([place]) Comment on above: Performed By: #### C BC, ADIFF, ANEU, TROPI, MG, PHOS, CMP, GFR, DRUGS, ESR, HIV, LMERLY, COXAAB, MYCO, COXBAB #### [address] [address] Platelet mean volume (Bld) [Entitic vol] 9.2 fL Normal 6.4-10.5 [facility] ([place]) Comment on above: Performed By: #### C BC, ADIFF, ANEU, TROPI, MG, PHOS, CMP, GFR, DRUGS, ESR, HIV, LMERLY, COXAAB, MYCO, COXBAB #### [address] [address] Platelets (Bld) [#/Vol] 268 10 3/mcL Normal 150-450 [facility] ([place]) Comment on above: Performed By: #### C BC, ADIFF, ANEU, TROPI, MG, PHOS, CMP, GFR, DRUGS, ESR, HIV, LMERLY, COXAAB, MYCO, COXBAB #### [address] [address] RBC (Bld) [#/Vol] 3.63 10 6/mcL Low 4.50-6.00 [facility] ([place]) Comment on above: Performed By: #### C BC, ADIFF, ANEU, TROPI, MG, PHOS, CMP, GFR, DRUGS, ESR, HIV, LMERLY, COXAAB, MYCO, COXBAB #### [place] [address] WBC (Bld) [#/Vol] 7.30 10 3/mcL Normal 4.50-10.80 [facility] ([place]) Comment on above: Performed By: #### C BC, ADIFF, ANEU, TROPI, MG, PHOS, CMP, GFR, DRUGS, ESR, HIV, LMERLY, COXAAB, MYCO, COXBAB #### [place] [address] DRUGUon 12-29-2018 U pH Drug Scrn 8.0 Normal 5.0-8.0 Count includes the [facility] ([place]) Comment on above: Performed By: #### C BC, ADIFF, ANEU, TROPI, MG, PHOS, CMP, GFR, DRUGS, ESR, HIV, LMERLY, COXAAB, MYCO, COXBAB #### [place] [address] U Specific [address]ks Drg Scrn 1.020 Normal 1.005-1.030 [facility] ([place]) Comment on above: Performed By: #### C BC, ADIFF, ANEU, TROPI, MG, PHOS, CMP, GFR, DRUGS, ESR, HIV, LMERLY, COXAAB, MYCO, COXBAB #### [place] [address] Drug Screen Urine Negative Normal [facility] ([place]) Comment on above: Performed By: #### C BC, ADIFF, ANEU, TROPI, MG, PHOS, CMP, GFR, DRUGS, ESR, HIV, LMERLY, COXAAB, MYCO, COXBAB #### [place] [address] Drug Screen Urine Interp Urine shows no evidence of drugs routinely screened. [facility] ([place]) Comment on above: Performed By: #### C BC, ADIFF, ANEU, TROPI, MG, PHOS, CMP, GFR, DRUGS, ESR, HIV, LMERLY, COXAAB, MYCO, COXBAB #### [place] [address] Urine Drugs screened: See Below Normal [facility] ([place]) Comment on above: Result Comment: This drug screen is a presumptive screening only. No confirmation will be performed unless requested. Drugs screened include: Threshold Amphetamines/Methamphetamines 1,000 ng/mL Barbiturates 200 ng/mL Benzodiazepine metabolites 200 ng/mL Cannabinoids (THC metabolites) 50 ng/mL Benzoylecognine (Cocaine metab) 300 ng/mL Opiates 300 ng/mL Phencyclidine (PCP) 25 ng/mL Methadone 300 ng/mL Propoxyphene 300 ng/mL Testing has been performed FOR MEDICAL PURPOSES ONLY. Performed By: #### C BC, ADIFF, ANEU, TROPI, MG, PHOS, CMP, GFR, DRUGS, ESR, HIV, LMERLY, COXAAB, MYCO, COXBAB #### [place] [address] MRI CARDIAC MORPH W+W/O CONT FLOW/VELOCon 12-29-2018 MRI CARDIAC MORPH W+W/O CONT FLOW/VELOC ORIGINAL MRI CARDIAC MORPH W+W/O CONT CLINICAL STATEMENT: pericarditis. COMPARISON: Chest x-ray 12/28/2018. CTA from outside facility 12/27/2018 History and physical examination 12/28/2018 which states patient has an outside CTA showing pericardial effusion with thickening and enhancement of the pericardium suspicious for infectious pericarditis with suspicion raised for constrictive pericarditis. TECHNIQUE: Axial double IR. Short axis triple IR, perfusion, and early gadolinium enhanced images. Cine FIESTA 4 chamber, 2 chamber, 3 chamber, and short axis. Late gadolinium enhanced short axis, 2 chamber, four-chamber, and 3 chamber images. FINDINGS: As seen on prior CTA of the chest, there is a moderate pericardial effusion. The pericardium is thickened and enhancing consistent with given history of pericarditis. The heart is not globally enlarged. Aorta and pulmonary artery are normal in caliber. The aortic valve is trileaflet. No significant valvular stenosis or regurgitation shown. Moderate septal bounce is shown indicating constrictive pericarditis. Ejection fraction is subjectively within normal limits. There is no LV myocardial edema or enhancement. Incidental: Small bilateral pleural effusions. LEFT lower lobe consolidation. IMPRESSION: Findings consistent with constrictive pericarditis. Interpreted By: Delmy Aponte MD Preliminary Report By: Delmy Aponte MD Electronically Signed By: Delmy Aponte MD Dictated Date: 12/29/2018 12:40:51 AM Prelim Date: 12/29/2018 12:40:51 AM Sign Date: 12/29/2018 1:18:41 AM Normal [facility] ([place]) RPRon 12-29-2018 Reagin Ab RPR Ql (S) Non-Reactive Normal Non-Reactive [facility] ([place]) Comment on above: Result Comment: The RPR test is a non-treponemal assay useful as an aid in the diagnosis of primary and secondary syphilis. It converts to positive generally within 2 weeks after the appearance of a lesion. This test is also useful for monitoring response to antibiotic therapy. A positive RPR screening test will be followed by the FTA ABS test. False positive RPR tests may occur in 1) patients with underlying autoimmune disorders, 2) elderly patients, 3) , and 4) other conditions with abnormal serum globulins. Performed By: #### C BC, ADIFF, ANEU, TROPI, MG, PHOS, CMP, GFR, DRUGS, ESR, HIV, LMERLY, COXAAB, MYCO, COXBAB #### [address] [address] .Auto Diffon 12-28-2018 Ammonia (P) [Mass/Vol] 1.30 10 3/mcL Normal 0.09-1.40 [facility] ([place]) Comment on above: Performed By: #### C BC, ADIFF, ANEU, TROPI, MG, PHOS, CMP, GFR, DRUGS, ESR, HIV, LMERLY, COXAAB, MYCO, COXBAB #### [address] [address] Basophils (Bld) [#/Vol] 0.00 10 3/mcL Normal 0.00-0.27 [facility] ([place]) Comment on above: Performed By: #### C BC, ADIFF, ANEU, TROPI, MG, PHOS, CMP, GFR, DRUGS, ESR, HIV, LMERLY, COXAAB, MYCO, COXBAB #### [address] [address] Basophils/100 WBC (Bld) 0.2 % Normal 0.0-2.5 [facility] ([place]) Comment on above: Performed By: #### C BC, ADIFF, ANEU, TROPI, MG, PHOS, CMP, GFR, DRUGS, ESR, HIV, LMERLY, COXAAB, MYCO, COXBAB #### [address] [address] Eosinophils (Bld) [#/Vol] 0.20 10 3/mcL Normal 0.00-0.65 [facility] ([place]) Comment on above: Performed By: #### C BC, ADIFF, ANEU, TROPI, MG, PHOS, CMP, GFR, DRUGS, ESR, HIV, LMERLY, COXAAB, MYCO, COXBAB #### [address] [address] Eosinophils/100 WBC (Bld) 2.0 % Normal 0.0-6.0 [facility] ([place]) Comment on above: Performed By: #### C BC, ADIFF, ANEU, TROPI, MG, PHOS, CMP, GFR, DRUGS, ESR, HIV, LMERLY, COXAAB, MYCO, COXBAB #### [address] [address] Lymphocytes (Bld) [#/Vol] 1.30 10 3/mcL Normal 0.90-4.32 [facility] ([place]) Comment on above: Performed By: #### C BC, ADIFF, ANEU, TROPI, MG, PHOS, CMP, GFR, DRUGS, ESR, HIV, LMERLY, COXAAB, MYCO, COXBAB #### [address] [address] Lymphocytes/100 WBC (Bld) 12.8 % Low 20.0-40.0 [facility] ([place]) Comment on above: Performed By: #### C BC, ADIFF, ANEU, TROPI, MG, PHOS, CMP, GFR, DRUGS, ESR, HIV, LMERLY, COXAAB, MYCO, COXBAB #### [address] [address] Monocytes/100 WBC (Bld) 12.9 % Normal 2.0-13.0 [facility] ([place]) Comment on above: Performed By: #### C BC, ADIFF, ANEU, TROPI, MG, PHOS, CMP, GFR, DRUGS, ESR, HIV, LMERLY, COXAAB, MYCO, COXBAB #### [address] [address] Neutrophils/100 WBC (Bld) 72.1 % Normal 50.0-75.0 [facility] ([place]) Comment on above: Performed By: #### C BC, ADIFF, ANEU, TROPI, MG, PHOS, CMP, GFR, DRUGS, ESR, HIV, LMERLY, COXAAB, MYCO, COXBAB #### [address] [address] .GFRon 12-28-2018 GFR Non- >60 Normal [facility] ([place]) Comment on above: Result Comment: GFR Population mean for , Non- Americans Ages 20-29 = 116 mL/min/1.73 sq.m. Ages 30-39 = 107 mL/min/1.73 sq.m. Ages 40-49 = 99 mL/min/1.73 sq.m. Ages 50-59 = 93 mL/min/1.73 sq.m. Ages 60-69 = 85 mL/min/1.73 sq.m. Ages 70+ = 75 mL/min/1.73 sq.m. Chronic Kidney Disease: Less than 60 mL/min/1.73 square meters End Stage Renal Disease: Less than 15 mL/min/1.73 square meters Performed By: #### C BC, ADIFF, ANEU, TROPI, MG, PHOS, CMP, GFR, DRUGS, ESR, HIV, LMERLY, COXAAB, MYCO, COXBAB #### [address] [address] GFR >60 Normal [facility] ([place]) Comment on above: Result Comment: GFR Population mean for , Non- Americans Ages 20-29 = 116 mL/min/1.73 sq.m. Ages 30-39 = 107 mL/min/1.73 sq.m. Ages 40-49 = 99 mL/min/1.73 sq.m. Ages 50-59 = 93 mL/min/1.73 sq.m. Ages 60-69 = 85 mL/min/1.73 sq.m. Ages 70+ = 75 mL/min/1.73 sq.m. Chronic Kidney Disease: Less than 60 mL/min/1.73 square meters End Stage Renal Disease: Less than 15 mL/min/1.73 square meters Performed By: #### C BC, ADIFF, ANEU, TROPI, MG, PHOS, CMP, GFR, DRUGS, ESR, HIV, LMERLY, COXAAB, MYCO, COXBAB #### [address] [address] .NEUABSon 12-28-2018 Neutrophils (Bld) [#/Vol] 7.20 10 3/mcL Normal 2.25-8.10 [facility] ([place]) Comment on above: Performed By: #### C BC, ADIFF, ANEU, TROPI, MG, PHOS, CMP, GFR, DRUGS, ESR, HIV, LMERLY, COXAAB, MYCO, COXBAB #### [place] [address] CBCon 12-28-2018 Erythrocyte distribution width (RBC) [Ratio] 12.0 % Normal 11.5-15.5 [facility] ([place]) Comment on above: Performed By: #### C BC, ADIFF, ANEU, TROPI, MG, PHOS, CMP, GFR, DRUGS, ESR, HIV, LMERLY, COXAAB, MYCO, COXBAB #### [place] [address] Hematocrit (Bld) [Volume fraction] 33.5 % Low 40.0-52.0 [facility] ([place]) Comment on above: Performed By: #### C BC, ADIFF, ANEU, TROPI, MG, PHOS, CMP, GFR, DRUGS, ESR, HIV, LMERLY, COXAAB, MYCO, COXBAB #### [place] [address] Hemoglobin (Bld) [Mass/Vol] 11.5 G/dL Low 13.0-17.5 [facility] ([place]) Comment on above: Performed By: #### C BC, ADIFF, ANEU, TROPI, MG, PHOS, CMP, GFR, DRUGS, ESR, HIV, LMERLY, COXAAB, MYCO, COXBAB #### [address] [address] MCH (RBC) [Entitic mass] 30.2 pg Normal 27.0-33.0 [facility] ([place]) Comment on above: Performed By: #### C BC, ADIFF, ANEU, TROPI, MG, PHOS, CMP, GFR, DRUGS, ESR, HIV, LMERLY, COXAAB, MYCO, COXBAB #### [address] [address] MCHC (RBC) [Mass/Vol] 34.4 G/dL Normal 32.0-36.0 [facility] ([place]) Comment on above: Performed By: #### C BC, ADIFF, ANEU, TROPI, MG, PHOS, CMP, GFR, DRUGS, ESR, HIV, LMERLY, COXAAB, MYCO, COXBAB #### [address] [address] MCV (RBC) [Entitic vol] 87.8 fL Normal 81.0-100.0 [facility] ([place]) Comment on above: Performed By: #### C BC, ADIFF, ANEU, TROPI, MG, PHOS, CMP, GFR, DRUGS, ESR, HIV, LMERLY, COXAAB, MYCO, COXBAB #### [address] [address] Platelet mean volume (Bld) [Entitic vol] 9.8 fL Normal 6.4-10.5 [facility] ([place]) Comment on above: Performed By: #### C BC, ADIFF, ANEU, TROPI, MG, PHOS, CMP, GFR, DRUGS, ESR, HIV, LMERLY, COXAAB, MYCO, COXBAB #### [address] [address] Platelets (Bld) [#/Vol] 274 10 3/mcL Normal 150-450 [facility] ([place]) Comment on above: Performed By: #### C BC, ADIFF, ANEU, TROPI, MG, PHOS, CMP, GFR, DRUGS, ESR, HIV, LMERLY, COXAAB, MYCO, COXBAB #### [address] [address] RBC (Bld) [#/Vol] 3.82 10 6/mcL Low 4.50-6.00 [facility] ([place]) Comment on above: Performed By: #### C BC, ADIFF, ANEU, TROPI, MG, PHOS, CMP, GFR, DRUGS, ESR, HIV, LMERLY, COXAAB, MYCO, COXBAB #### [address] [address] WBC (Bld) [#/Vol] 10.10 10 3/mcL Normal 4.50-10.80 [facility] ([place]) Comment on above: Performed By: #### C BC, ADIFF, ANEU, TROPI, MG, PHOS, CMP, GFR, DRUGS, ESR, HIV, LMERLY, COXAAB, MYCO, COXBAB #### [address] [address] CMPon 12-28-2018 Albumin [Mass/Vol] 3.0 G/dL Low 3.2-4.8 Replaced by [facility] ([place]) Comment on above: Performed By: #### C BC, ADIFF, ANEU, TROPI, MG, PHOS, CMP, GFR, DRUGS, ESR, HIV, LMERLY, COXAAB, MYCO, COXBAB #### [place] [id number] Albumin/Globulin [Mass ratio] 0.7 {ratio} Low 0.9-1.6 [facility] ([place]) Comment on above: Performed By: #### C BC, ADIFF, ANEU, TROPI, MG, PHOS, CMP, GFR, DRUGS, ESR, HIV, LMERLY, COXAAB, MYCO, COXBAB #### [place] [id number] ALP [Catalytic activity/Vol] 63 U/L Normal 38-126 [facility] ([place]) Comment on above: Performed By: #### C BC, ADIFF, ANEU, TROPI, MG, PHOS, CMP, GFR, DRUGS, ESR, HIV, LMERLY, COXAAB, MYCO, COXBAB #### [address] [address] ALT [Catalytic activity/Vol] 28 U/L Normal 12-55 [facility] ([place]) Comment on above: Performed By: #### C BC, ADIFF, ANEU, TROPI, MG, PHOS, CMP, GFR, DRUGS, ESR, HIV, LMERLY, COXAAB, MYCO, COXBAB #### [address] [address] AST [Catalytic activity/Vol] 8 U/L Normal 8-34 [facility] ([place]) Comment on above: Performed By: #### C BC, ADIFF, ANEU, TROPI, MG, PHOS, CMP, GFR, DRUGS, ESR, HIV, LMERLY, COXAAB, MYCO, COXBAB #### [address] [address] Bili Total 0.7 mg/dL Normal 0.2-1.2 [facility] ([place]) Comment on above: Performed By: #### C BC, ADIFF, ANEU, TROPI, MG, PHOS, CMP, GFR, DRUGS, ESR, HIV, LMERLY, COXAAB, MYCO, COXBAB #### [address] [address] Calcium [Mass/Vol] 8.1 mg/dL Low 8.4-10.1 Replaced by [facility] ([place]) Comment on above: Performed By: #### C BC, ADIFF, ANEU, TROPI, MG, PHOS, CMP, GFR, DRUGS, ESR, HIV, LMERLY, COXAAB, MYCO, COXBAB #### [address] [address] CO2 [Moles/Vol] 28 mmol/L Normal 22-32 Counts include 234 beds at the [facility] ([place]) Comment on above: Performed By: #### C BC, ADIFF, ANEU, TROPI, MG, PHOS, CMP, GFR, DRUGS, ESR, HIV, LMERLY, COXAAB, MYCO, COXBAB #### [address] [address] Creatinine [Mass/Vol] 0.82 mg/dL Normal 0.60-1.40 [facility] ([place]) Comment on above: Performed By: #### C BC, ADIFF, ANEU, TROPI, MG, PHOS, CMP, GFR, DRUGS, ESR, HIV, LMERLY, COXAAB, MYCO, COXBAB #### [address] [address] Electrolyte Balance 8.0 mEq/L Normal 4.0-15.0 [facility] ([place]) Comment on above: Performed By: #### C BC, ADIFF, ANEU, TROPI, MG, PHOS, CMP, GFR, DRUGS, ESR, HIV, LMERLY, COXAAB, MYCO, COXBAB #### [address] [address] Globulin (S) [Mass/Vol] 4.3 G/dL High 1.5-3.8 [facility] ([place]) Comment on above: Performed By: #### C BC, ADIFF, ANEU, TROPI, MG, PHOS, CMP, GFR, DRUGS, ESR, HIV, LMERLY, COXAAB, MYCO, COXBAB #### [address] [address] Glucose [Mass/Vol] 103 mg/dL Normal 70-110 Replaced by [facility] ([place]) Comment on above: Performed By: #### C BC, ADIFF, ANEU, TROPI, MG, PHOS, CMP, GFR, DRUGS, ESR, HIV, LMERLY, COXAAB, MYCO, COXBAB #### [address] [address] Protein [Mass/Vol] 7.3 G/dL Normal 6.0-8.5 Replaced by [facility] ([place]) Comment on above: Performed By: #### C BC, ADIFF, ANEU, TROPI, MG, PHOS, CMP, GFR, DRUGS, ESR, HIV, LMERLY, COXAAB, MYCO, COXBAB #### [address] [address] Urea nitrogen [Mass/Vol] 7.0 mg/dL Low 8.0-22.0 [facility] ([place]) Comment on above: Performed By: #### C BC, ADIFF, ANEU, TROPI, MG, PHOS, CMP, GFR, DRUGS, ESR, HIV, LMERLY, COXAAB, MYCO, COXBAB #### [address] [address] Urea nitrogen/Creatinine [Mass ratio] 8.5 ratio Low 10.0-22.0 [facility] ([place]) Comment on above: Performed By: #### C BC, ADIFF, ANEU, TROPI, MG, PHOS, CMP, GFR, DRUGS, ESR, HIV, LMERLY, COXAAB, MYCO, COXBAB #### [address] [address] Chloride [Moles/Vol] 107 mmol/L Normal 98-110 [facility] ([place]) Comment on above: Performed By: #### C BC, ADIFF, ANEU, TROPI, MG, PHOS, CMP, GFR, DRUGS, ESR, HIV, LMERLY, COXAAB, MYCO, COXBAB #### [address] [address] Potassium [Moles/Vol] 3.8 mmol/L Normal 3.5-5.0 [facility] ([place]) Comment on above: Performed By: #### C BC, ADIFF, ANEU, TROPI, MG, PHOS, CMP, GFR, DRUGS, ESR, HIV, LMERLY, COXAAB, MYCO, COXBAB #### [address] [address] Sodium [Moles/Vol] 143 mmol/L Normal 136-145 Replaced by [facility] ([place]) Comment on above: Performed By: #### C BC, ADIFF, ANEU, TROPI, MG, PHOS, CMP, GFR, DRUGS, ESR, HIV, LMERLY, COXAAB, MYCO, COXBAB #### [place] [address] CRPon 12-28-2018 CRP [Mass/Vol] 17.80 mg/dL High <=0.80 Counts include 234 beds at the [facility] ([place]) Comment on above: Performed By: #### C BC, ADIFF, ANEU, TROPI, MG, PHOS, CMP, GFR, DRUGS, ESR, HIV, LMERLY, COXAAB, MYCO, COXBAB #### [place] [address] DRUGSon 12-28-2018 Acetaminophen [Mass/Vol] <2.0 Low 10.0-30.0 [facility] ([place]) Comment on above: Performed By: #### C BC, ADIFF, ANEU, TROPI, MG, PHOS, CMP, GFR, DRUGS, ESR, HIV, LMERLY, COXAAB, MYCO, COXBAB #### [place] [address] Drug Screen (s) Negative Normal Negative Counts include 234 beds at the [facility] ([place]) Comment on above: Performed By: #### C BC, ADIFF, ANEU, TROPI, MG, PHOS, CMP, GFR, DRUGS, ESR, HIV, LMERLY, COXAAB, MYCO, COXBAB #### [place] [address] Drug Screen Interp Serum shows no evidence of drugs routinely screened [facility] ([place]) Comment on above: Performed By: #### C BC, ADIFF, ANEU, TROPI, MG, PHOS, CMP, GFR, DRUGS, ESR, HIV, LMERLY, COXAAB, MYCO, COXBAB #### [place] [address] Ethanol Level <10.0 Normal [facility] ([place]) Comment on above: Performed By: #### C BC, ADIFF, ANEU, TROPI, MG, PHOS, CMP, GFR, DRUGS, ESR, HIV, LMERLY, COXAAB, MYCO, COXBAB #### [place] [address] Salicylate Lvl (ds) <2.0 Low 10.0-25.0 [facility] ([place]) Comment on above: Performed By: #### C BC, ADIFF, ANEU, TROPI, MG, PHOS, CMP, GFR, DRUGS, ESR, HIV, LMERLY, COXAAB, MYCO, COXBAB #### [place] [address] Serum Drugs screened: See Below [facility] ([place]) Comment on above: Result Comment: This drug screen is a presumptive screening only. No confirmation will be performed unless requested. Drugs included in the ER serum drug screen are: Threshold Ethanol 10.0 mg/dL Salicylate 2.0 mg/dl Acetaminophen 2.0 mcg/mL Tricyclic Antidepressants 300 ng/mL Testing has been performed FOR MEDICAL PURPOSES ONLY. Performed By: #### C BC, ADIFF, ANEU, TROPI, MG, PHOS, CMP, GFR, DRUGS, ESR, HIV, LMERLY, COXAAB, MYCO, COXBAB #### [place] [address] TCA (s) Negative Normal [facility] ([place]) Comment on above: Performed By: #### C BC, ADIFF, ANEU, TROPI, MG, PHOS, CMP, GFR, DRUGS, ESR, HIV, LMERLY, COXAAB, MYCO, COXBAB #### [place] [address] ESRon 12-28-2018 ESR (Bld) [Velocity] 65 mm/h High 0-15 [facility] ([place]) Comment on above: Performed By: #### C BC, ADIFF, ANEU, TROPI, MG, PHOS, CMP, GFR, DRUGS, ESR, HIV, LMERLY, COXAAB, MYCO, COXBAB #### [place] [address] HIVon 12-28-2018 HIV 1/2 Ab Normal Negative [facility] ([place]) Comment on above: Result Comment: Nega tive Specimen is negative for anti-HIV-1 and anti-HIV-2. Performed By: #### C BC, ADIFF, ANEU, TROPI, MG, PHOS, CMP, GFR, DRUGS, ESR, HIV, LMERLY, COXAAB, MYCO, COXBAB #### [place] [address] LUAon 12-28-2018 MARJORIE . MICRO - Microbiology PROCEDURE: Legionella Urine Ag [*1] SOURCE: Urine BODY SITE: COLLECTED DATE/TIME: 12/28/2018 19:03 EDT RECEIVED DATE/TIME: 12/28/2018 19:16 EDT START DATE/TIME: 12/28/2018 19:16 EDT FREE TEXT SOURCE: FINAL REPORTS Final Report [] Verified Date/Time/Personnel: 12/28/2018 19:40 EDT Presumptive negative for L. pneumophila serogroup 1 antigen in urine, suggesting no recent or current infection. Legionnaire's disease cannot be ruled out since other serogroups and species may also cause disease. Performing Locations *1: This test was performed at: [address], [address] [place] [address] ([place]) Comment on above: Performed By: #### C BC, ADIFF, ANEU, TROPI, MG, PHOS, CMP, GFR, DRUGS, ESR, HIV, LMERLY, COXAAB, MYCO, COXBAB #### [place] [address] MGon 12-28-2018 Magnesium [Mass/Vol] 2.3 mg/dL Normal 1.6-2.4 [facility] ([place]) Comment on above: Performed By: #### C BC, ADIFF, ANEU, TROPI, MG, PHOS, CMP, GFR, DRUGS, ESR, HIV, LMERLY, COXAAB, MYCO, COXBAB #### [place] [address] MYCOon 12-28-2018 Mycoplasma IgM Negative Normal Count includes the [facility] ([place]) Comment on above: Result Comment: INTE RPRETATION OF MYCOPLASMA BY EIA (Effective 08/28/04): Negative No detectable antibodies to M. pneumoniae. Indicates absence of current or previous infection. Positive Reactive for antibodies to M. pneumoniae. Indicates a past or recent infection. Equivocal Equivocal for antibodies to M. pneumoniae. Repeat testing by an alternate method suggested. Performed By: #### C BC, ADIFF, ANEU, TROPI, MG, PHOS, CMP, GFR, DRUGS, ESR, HIV, LMERLY, COXAAB, MYCO, COXBAB #### [address] [address] PHOSon 12-28-2018 Phosphate [Mass/Vol] 2.8 mg/dL Normal 2.5-4.5 [facility] ([place]) Comment on above: Performed By: #### C BC, ADIFF, ANEU, TROPI, MG, PHOS, CMP, GFR, DRUGS, ESR, HIV, LMERLY, COXAAB, MYCO, COXBAB #### [address] [address] PROon 12-28-2018 INR Coag (PPP) [Relative time] 1.4 {INR} Normal [facility] ([place]) Comment on above: Result Comment: The [employer] (CHEST, 1992, 102:312S-25S) recommended therapeutic range for oral anticoagulant therapy is: LOW RISK: Prophylaxis of venous thrombosis INR: 2.0-3.0 Treatment of pulmonary embolism 2.0-3.0 Prevention of systemic embolism 2.0-3.0 HIGH RISK: Mechanical prosthetic valves 2.5-3.5 Performed By: #### C BC, ADIFF, ANEU, TROPI, MG, PHOS, CMP, GFR, DRUGS, ESR, HIV, LMERLY, COXAAB, MYCO, COXBAB #### [address] [address] PT Coag (PPP) [Time] 16.1 s High 9.0-14.6 [facility] ([place]) Comment on above: Result Comment: Effe ctive 03/06/08, Protime results may be affected by some antibiotics (i.e. Ciprofloxacin, Azithromycin, Bactrim) which may potentiate the action of oral anticoagulants, with further increases in Protime/INR. Performed By: #### C BC, ADIFF, ANEU, TROPI, MG, PHOS, CMP, GFR, DRUGS, ESR, HIV, LMERLY, COXAAB, MYCO, COXBAB #### [place] [address] RESPIDon 12-28-2018 Adenovirus Not Detected Normal Not Detected Count includes the [facility] ([place]) Comment on above: Performed By: #### C BC, ADIFF, ANEU, TROPI, MG, PHOS, CMP, GFR, DRUGS, ESR, HIV, LMERLY, COXAAB, MYCO, COXBAB #### [place] [address] Bordetella Parapertussis Not Detected Normal Not Detected [facility] ([place]) Comment on above: Performed By: #### C BC, ADIFF, ANEU, TROPI, MG, PHOS, CMP, GFR, DRUGS, ESR, HIV, LMERLY, COXAAB, MYCO, COXBAB #### [place] [address] Bordetella Pertussis Not Detected Normal Not Detected [facility] ([place]) Comment on above: Performed By: #### C BC, ADIFF, ANEU, TROPI, MG, PHOS, CMP, GFR, DRUGS, ESR, HIV, LMERLY, COXAAB, MYCO, COXBAB #### [place] [address] Chlamydophila pneumoniae Not Detected Normal Not Detected [facility] ([place]) Comment on above: Performed By: #### C BC, ADIFF, ANEU, TROPI, MG, PHOS, CMP, GFR, DRUGS, ESR, HIV, LMERLY, COXAAB, MYCO, COXBAB #### [place] [address] Coronavirus 229E Not Detected Normal Not Detected [facility] ([place]) Comment on above: Performed By: #### C BC, ADIFF, ANEU, TROPI, MG, PHOS, CMP, GFR, DRUGS, ESR, HIV, LMERLY, COXAAB, MYCO, COXBAB #### [place] [address] Coronavirus HKU1 Not Detected Normal Not Detected [facility] ([place]) Comment on above: Performed By: #### C BC, ADIFF, ANEU, TROPI, MG, PHOS, CMP, GFR, DRUGS, ESR, HIV, LMERLY, COXAAB, MYCO, COXBAB #### [place] [address] Coronavirus NL63 Not Detected Normal Not Detected [facility] ([place]) Comment on above: Performed By: #### C BC, ADIFF, ANEU, TROPI, MG, PHOS, CMP, GFR, DRUGS, ESR, HIV, LMERLY, COXAAB, MYCO, COXBAB #### [place] [address] Coronavirus OC43 Not Detected Normal Not Detected [facility] ([place]) Comment on above: Performed By: #### C BC, ADIFF, ANEU, TROPI, MG, PHOS, CMP, GFR, DRUGS, ESR, HIV, LMERLY, COXAAB, MYCO, COXBAB #### [place] [address] Human Metapneumovirus Not Detected Normal Not Detected [facility] ([place]) Comment on above: Performed By: #### C BC, ADIFF, ANEU, TROPI, MG, PHOS, CMP, GFR, DRUGS, ESR, HIV, LMERLY, COXAAB, MYCO, COXBAB #### [place] [address] Influenza A Not Detected Normal Not Detected Counts include 234 beds at the [facility] ([place]) Comment on above: Performed By: #### C BC, ADIFF, ANEU, TROPI, MG, PHOS, CMP, GFR, DRUGS, ESR, HIV, LMERLY, COXAAB, MYCO, COXBAB #### [place] [address] Influenza B Not Detected Normal Not Detected Counts include 234 beds at the [facility] ([place]) Comment on above: Performed By: #### C BC, ADIFF, ANEU, TROPI, MG, PHOS, CMP, GFR, DRUGS, ESR, HIV, LMERLY, COXAAB, MYCO, COXBAB #### [place] [address] Mycoplasma pneumoniae Not Detected Normal Not Detected [facility] ([place]) Comment on above: Performed By: #### C BC, ADIFF, ANEU, TROPI, MG, PHOS, CMP, GFR, DRUGS, ESR, HIV, LMERLY, COXAAB, MYCO, COXBAB #### [place] [address] Parainfluenza 1 Not Detected Normal Not Detected [facility] ([place]) Comment on above: Performed By: #### C BC, ADIFF, ANEU, TROPI, MG, PHOS, CMP, GFR, DRUGS, ESR, HIV, LMERLY, COXAAB, MYCO, COXBAB #### [place] [address] Parainfluenza 2 Not Detected Normal Not Detected [facility] ([place]) Comment on above: Performed By: #### C BC, ADIFF, ANEU, TROPI, MG, PHOS, CMP, GFR, DRUGS, ESR, HIV, LMERLY, COXAAB, MYCO, COXBAB #### [place] [address] Parainfluenza 3 Not Detected Normal Not Detected [facility] ([place]) Comment on above: Performed By: #### C BC, ADIFF, ANEU, TROPI, MG, PHOS, CMP, GFR, DRUGS, ESR, HIV, LMERLY, COXAAB, MYCO, COXBAB #### [place] [address] Parainfluenza 4 Not Detected Normal Not Detected [facility] ([place]) Comment on above: Performed By: #### C BC, ADIFF, ANEU, TROPI, MG, PHOS, CMP, GFR, DRUGS, ESR, HIV, LMERLY, COXAAB, MYCO, COXBAB #### [place] [address] Respiratory Syncytial Virus Not Detected Normal Not Detected [facility] ([place]) Comment on above: Performed By: #### C BC, ADIFF, ANEU, TROPI, MG, PHOS, CMP, GFR, DRUGS, ESR, HIV, LMERLY, COXAAB, MYCO, COXBAB #### [address] [address] Rhinovirus/Enterovir us Not Detected Normal Not Detected [facility] ([place]) Comment on above: Performed By: #### C BC, ADIFF, ANEU, TROPI, MG, PHOS, CMP, GFR, DRUGS, ESR, HIV, LMERLY, COXAAB, MYCO, COXBAB #### [place] [id number] SPAGon 12-28-2018 SPAG . MICRO - Microbiology PROCEDURE: Streptococcus Pneumoniae Urine Antig [^1 *1] SOURCE: Urine BODY SITE: COLLECTED DATE/TIME: 12/28/2018 19:03 EDT RECEIVED DATE/TIME: 12/28/2018 19:16 EDT START DATE/TIME: 12/28/2018 19:16 EDT FREE TEXT SOURCE: FINAL REPORTS Final Report [] Verified Date/Time/Personnel: 12/28/2018 19:40 EDT Presumptive negative for pneumococcal pneumonia, suggesting no current or recent pneumococcal infection. Infection due to Strep pneumoniae cannot be ruled out since the antigen present in the sample may be below the detection limit of the test. Interpretive Data ^1: Streptococcus Pneumoniae Urine Antig This test has not been evaluated on patients taking antibiotics for greater than 24 hours or on patients who have recently completed an antibiotic regimen. The accuracy of this test has not been proven in young children. Performing Locations *1: This test was performed at: [address], [facility] , [facility] Normal [facility] ([place]) Comment on above: Performed By: #### C BC, ADIFF, ANEU, TROPI, MG, PHOS, CMP, GFR, DRUGS, ESR, HIV, LMERLY, COXAAB, MYCO, COXBAB #### [address] [address] TROPIon 12-28-2018 Troponin I.cardiac [Mass/Vol] ng/mL Normal 0.000-0.040 [facility] ([place]) Comment on above: Result Comment: Trop onin I reference ranges (04/30/14): 0.00-0.040 ng/mL Negative and non-diagnostic. >0.040 ng/mL Consistent with cardiac damage, increased clinical risk and possibility of myocardial infarction. Serial measurements, a rise & fall in test results, clinical history, appropriate symptoms and/or ECG changes may help assess possibility of ID. *Other non-acute coronary syndrome conditions such as CHF, myocarditis, pulmonary emboli, sepsis and cardiac surgery could result in myocardial damage and increased troponin levels. Performed By: #### C BC, ADIFF, ANEU, TROPI, MG, PHOS, CMP, GFR, DRUGS, ESR, HIV, LMERLY, COXAAB, MYCO, COXBAB #### [address] [address] Troponin I.cardiac [Mass/Vol] ng/mL Normal 0.000-0.040 [facility] ([place]) Comment on above: Result Comment: Trop onin I reference ranges (04/30/14): 0.00-0.040 ng/mL Negative and non-diagnostic. >0.040 ng/mL Consistent with cardiac damage, increased clinical risk and possibility of myocardial infarction. Serial measurements, a rise & fall in test results, clinical history, appropriate symptoms and/or ECG changes may help assess possibility of ID. *Other non-acute coronary syndrome conditions such as CHF, myocarditis, pulmonary emboli, sepsis and cardiac surgery could result in myocardial damage and increased troponin levels. Performed By: #### C BC, ADIFF, ANEU, TROPI, MG, PHOS, CMP, GFR, DRUGS, ESR, HIV, LMERLY, COXAAB, MYCO, COXBAB #### [address] [address] Troponin I.cardiac [Mass/Vol] ng/mL Normal 0.000-0.040 [facility] ([place]) Comment on above: Result Comment: Trop onin I reference ranges (04/30/14): 0.00-0.040 ng/mL Negative and non-diagnostic. >0.040 ng/mL Consistent with cardiac damage, increased clinical risk and possibility of myocardial infarction. Serial measurements, a rise & fall in test results, clinical history, appropriate symptoms and/or ECG changes may help assess possibility of ID. *Other non-acute coronary syndrome conditions such as CHF, myocarditis, pulmonary emboli, sepsis and cardiac surgery could result in myocardial damage and increased troponin levels. Performed By: #### C BC, ADIFF, ANEU, TROPI, MG, PHOS, CMP, GFR, DRUGS, ESR, HIV, LMERLY, COXAAB, MYCO, COXBAB #### [place] [address] [place], [place] [id number] XR CHEST 2 VIEWSon 9 XR CHEST 2 VIEWS ORIGINAL XR CHEST 2 VIEWS Clinical Statement: Chest Pain COMPARISON: None FINDINGS: Small amount of bibasilar airspace disease present and a trace LEFT pleural effusion is suspected. No pneumothorax. The heart size is within normal limits. No aggressive osseous lesions are identified and there are no visible acute fractures. IMPRESSION: Trace LEFT pleural effusion is suspected. Interpreted By: Tony Baron Preliminary Report By: Tony Baron Electronically Signed By: Tony Baron Dictated Date: 12/28/2018 8:16:58 AM Prelim Date: 12/28/2018 8:16:58 AM Sign Date: 12/28/2018 8:18:27 AM Normal [facility] ([place]) OV 12-25-2018 [facility] Office Visit ([facility] ) DYLAN BOWMAN ([id number]) 1980 M Date Time Provider Department 12/25/18 1:30 PM ESTER ESQUIVEL ([facility]) [facility] During your visit today, we recorded the following information about you: Temperature Pulse Respiration Blood pressure 100.2 degrees 135/minute 16/minute 132/72 Weight 93.6 kg Ester Esquivel APRN.CNP 12/25/2018 2:40 PM Signed Subjective HPI HPI Dylan Bowman is a 38 year old male who presents today for CC of cough, shortness of breath. This started 2 weeks ago, cough improving, but now having fevers. Has tried otc medication. Symptoms are worsened by nothing. No hx of asthma or diabetes. nonsmoker. .Patient presents with: Cough: x 2 weeks No past medical history on file. No past surgical history on file. ALLERGIES Patient has no known allergies. MEDICATIONS fluticasone (FLONASE) 50 mcg/Actuation NASAL nasal spray 1 [place] daily at bedtime. Benzonatate (TESSALON) 200 mg ORAL capsule Take by mouth. ONE (1) CAPSULE THREE (3) TIMES DAILY FOR COUGH No family history on file. Social History Tobacco Use - Smoking status: Never Smoker - Smokeless tobacco: Never Used Substance Use Topics - Alcohol use: Not on file - Drug use: Not on file = Review of Systems Constitutional: Negative for fever. HENT: Positive for congestion. Negative for ear pain, nosebleeds and sore throat. Respiratory: Positive for cough and shortness of breath (with cough). Negative for wheezing. Cardiovascular: Negative for chest pain. No chest pain or shortness of breath with exertion Musculoskeletal: Negative for neck pain. Objective Blood pressure 132/72, pulse (!) 135, temperature 37.9 ?C (100.2 ?F), temperature source Left Tympanic, resp. rate 16, weight 93.6 kg (206 lb 6.4 oz), SpO2 97 %. Physical Exam Constitutional: He is oriented to person, place, and time and well-developed, well-nourished, and in no distress. Non-toxic appearance. He does not have a sickly appearance. No distress. HENT: Head: Normocephalic and atraumatic. Right Ear: Hearing, tympanic membrane, external ear and ear canal normal. Left Ear: Hearing, tympanic membrane, external ear and ear canal normal. Nose: Nose normal. Mouth/Throat: Uvula is midline, oropharynx is clear and moist and mucous membranes are normal. Eyes: Pupils are equal, round, and reactive to light. Conjunctivae and lids are normal. Right eye exhibits no discharge. Left eye exhibits no discharge. No scleral icterus. Neck: Trachea normal and normal range of motion. Neck supple. Cardiovascular: Normal rate, regular rhythm and normal heart sounds. Pulmonary/Chest: Effort normal. He has rhonchi (scattered, more focally in right lower lobe). Lymphadenopathy: He has no cervical adenopathy. Neurological: He is alert and oriented to person, place, and time. Skin: No rash noted. He is not diaphoretic. ASSESSMENT/PLAN: 1. Pneumonia, unspecified organism - ICD9: 486, ICD10: J18.9 (primary diagnosis) - Discussed supportive care, given educational handout - Limit exposure to smoke and other inhaled irritants - Discussed possible red flags and when to seek medical attention - Follow up in 3-5 days or sooner if no better or worse -If you experience chest pain/shortness of breath go to ER Informed should have f/u imaging with pcp - AZITHROMYCIN 250 MG TABLET 2. Rhonchi - ICD9: 786.7, ICD10: R09.89 As above - XR CHEST 2V FRONTAL/LAT - Dictated by : LINDSEY BORGES MD Impression IMPRESSION: Small left pleural effusion and left posterior basal opacities/atelectasis. Clinical correlation and follow-up study are recommended. Prescription instructions reviewed with patient as applicable. Patient advised if symptoms do not improve or if symptoms worsen sooner, to contact the office for further evaluation by their primary care physician. Potential red flag symptoms discussed with the patient. Reviewed appropriate action plan to take if red flag symptoms occur. Patient agreeable to treatment plan. Ester Esquivel APRN.LEWIS Esquivel APRN.CNP 12/25/2018 2:23 PM Signed [facility] PATIENT INFO PNEUMONIA OVERVIEW Pneumonia is an infection of the lungs. It is a serious illness that can affect people of any age, although it is most serious in the very young, people over the age of 65, and those with underlying medical problems such as congestive heart disease, diabetes, and chronic lung disease. It is most common during the winter months, and occurs more often in smokers and men. This article will focus on community-acquired pneumonia (CAP), which refers to pneumonia that develops in people in the community, rather than in a hospital, usp, or assisted-living facility. About four million cases of CAP occur each year in the [place], and approximately 20 percent of people require hospitalization. LUNG FUNCTION As we breathe, air is inhaled through the nose and mouth, and travels through the trachea and the bronchi to the bronchioles. At the end of the bronchioles, there are tiny air sacs, called alveoli. Alveoli have thin, porous valentine that contain capillaries. The mouth and respiratory tract are constantly exposed to microorganisms as air is inhaled through the nose and mouth. However, the body's defenses are usually able prevent microorganisms from entering and infecting the lungs. These defenses include the immune system, the specialized shape of the nose and pharynx, the ability to cough, and fine hair-like structures called cilia located on the bronchi. Pneumonia can develop if your defenses are not adequate or the microorganism is particularly strong. As microorganisms multiply, the alveoli become inflamed and accumulate fluid. These changes lead to the symptoms of pneumonia. HIGH-RISK GROUPS Some groups of adults are at a greater risk of developing pneumonia. These include people who: ? Are greater than 65 years old ? Are cigarette smokers ? Are malnourished due to health conditions or lack of access to food ? Have underlying lung disease, including cystic fibrosis, asthma, or chronic obstructive pulmonary disease (emphysema) ? Have other underlying medical problems, including diabetes or heart disease ? Have a weakened immune system due to HIV, organ transplant, chemotherapy, or chronic steroid use ? Have difficulty coughing due to stroke, sedating drugs or alcohol, or limited mobility ? Have had a recent viral upper respiratory tract infection including influenza PNEUMONIA CAUSES Pneumonia can be caused by a variety of microorganisms, including viruses, bacteria, and less commonly, fungi. The most common cause of pneumonia in the [place] is the bacterium Streptococcus pneumoniae, or pneumococcus. Viruses are estimated to be the cause of adult CAP in at least 20 percent of cases. Fungi rarely cause pneumonia in people who are generally healthy; people with a weakened immune system (those with HIV, organ transplant patients, or those on chemotherapy) are at higher risk of fungal infection. Other organisms, such as Mycoplasma, are a common cause of mild pneumonia but can occasionally cause serious disease. PNEUMONIA SYMPTOMS Common symptoms of pneumonia include shortness of breath, pain with breathing, a rapid heart and breathing rate, nausea, vomiting, diarrhea, and a cough that often produces green or yellow sputum; occasionally the sputum is rust colored. Most people have a fever (temperature greater than 100.5?F or 38?C), although elderly people have fever less often. Shaking chills (called rigors) and a change in mental status (confusion, unclear thinking) can occur. The characteristics of pneumonia are different than those of a more common infection, acute viral bronchitis, which does not usually cause fever and does not require treatment with an antibiotic. PNEUMONIA DIAGNOSIS Pneumonia is usually diagnosed with a medical history and physical examination, and sometimes a chest x-ray. The need for further testing depends upon the severity of the illness and the person's risk of complications. Blood oxygen measurement ? Pneumonia can decrease the amount of oxygen available in the blood. As a result, a blood oxygen level is often measured by attaching a small clip to the finger or ear that uses infrared light. In those who are sicker, the oxygen level may be measured by withdrawing a sample of blood from an artery. PNEUMONIA TREATMENT The goal of treatment for patients with CAP is to treat the infection and prevent complications. Initial treatment of CAP is based upon the organism that is likely to be causing pneumonia (called empiric treatment). Most patients improve with empiric treatment. Hospital versus home care ? Most patients are treated for CAP at home with oral antibiotics. People who are seriously ill or are at increased risk for complications may be hospitalized. Hospital monitoring usually includes measurement of heart and breathing rate, temperature, and oxygen levels. Hospitalized patients are usually given intravenous (IV) antibiotics initially. The number of days spent in the hospital is variable, and depends upon how a person responds to treatment and if there are underlying medical problems. Some patients, including people with previous lung damage or disease, a weakened immune system, or infection in more than one lobe of the lungs (called multilobar pneumonia), may be slow to recover and require a longer hospitalization. Antibiotic choice ? A number of antibiotic treatment regimens exist for treatment of CAP. The choice of which antibiotic to use is based upon several factors, including the person's underlying medical problems and the likelihood of being infected with a bacteria that is resistant to specific drugs. People with certain underlying medical problems and those who have used antibiotics in the past three months have a higher risk of infection with drug resistant bacteria. For all antibiotic regimens, it is important to finish the entire course of medication and take it exactly as directed. EXPECTED RECOVERY FROM PNEUMONIA A person with pneumonia usually begins to improve after three to five days of antibiotic treatment. Improvement may be defined as feeling better or having fewer symptoms, such as cough and fever. Fatigue and a persistent, but milder, cough can last for up to one month, although most people are able to resume their usual activities within seven days. Patients treated in the hospital may require three weeks or more to resume normal activities. All patients, whether treated at home or in the hospital, should take special care of themselves during the recovery period. This includes getting adequate rest at night and taking naps during the day if needed. Patients should drink fluids to avoid becoming dehydrated; there is no specific amount of fluid recommended, but thirst is a good indicator of the need to drink more fluids. Patients should be sure to finish all of their antibiotic medication, even if they feel better after a few days. WHEN TO SEEK HELP Anyone who suspects that they have pneumonia should seek medical care as soon as possible. Pneumonia is a serious illness that can be life-threatening if not treated, especially for people who are older than 65 years, alcoholic, have underlying medical problems, or a weakened immune system. People with the following symptoms should see their healthcare provider promptly: ? Fever and cough with phlegm that does not improve or worsens ? New shortness of breath with normal daily activities ? Chest pain with breathing ? Feeling suddenly worse after a cold or the flu PREVENTION The pneumococcal vaccine is one of the most effective ways to prevent pneumonia. Smoking cessation is another important way to prevent pneumonia. Infection control ? Infection control measures can help to prevent the spread of any type of infection, including pneumonia. Infection control is most commonly practiced in healthcare settings, but is useful in the community as well. Simple practices such as frequent hand washing with soap and water or alcohol-based hand rubs can be effective. Because pneumonia is spread by contact with infected respiratory secretions, people with pneumonia should limit [id number] contact with uninfected family and friends. The mouth and nose should be covered while coughing or sneezing, and tissues should be disposed of immediately. Sneezing/coughing into the sleeve of one's clothing (at the inner elbow) is another means of containing sprays of saliva and secretions and has the advantage of not contaminating the hands. Referring Provider: SELF [200] Allergies As of Date: 12/25/2018 (No Known Allergies) Date Reviewed: 12/25/2018 Reviewed by: Delores Gray Ma - Fully Assessed Reason for Visit: Cough [28] Cmt: x 2 weeks Primary Visit Diagnosis:Pneumonia, unspecified organism [J18.9] Other Visit Diagnosis:Rhonchi [R09.89] Order(s):XR CHEST 2V FRONTAL/LAT [[id number]] Order #: [id number]. #:[id number] azithromycin (ZITHROMAX Z-ADI) 250 mg tabletTake 2 tablets day one, then, 1 tablet daily until gone.Disp: 1 PackageRfl: 0 Prescriptions as of 12/25/2018 Sig: AZITHROMYCIN 250 MG TABLET Take 2 tablets day one, then,* FLUTICASONE PROPIONATE 50 MCG* 1 [place] daily at bedtime. BENZONATATE 200 MG CAPSULE Take by mouth. ONE (1) CAPSU* Patient not taking: Reported on 12/25/2018 Problem List As Of Date: 12/25/2018 (None) Other instructions from your clinician: EXPRESS CARE PATIENT INFO PNEUMONIA OVERVIEW Pneumonia is an infection of the lungs. It is a serious illness that can affect people of any age, although it is most serious in the very young, people over the age of 65, and those with underlying medical problems such as congestive heart disease, diabetes, and chronic lung disease. It is most common during the winter months, and occurs more often in smokers and men. This article will focus on community-acquired pneumonia (CAP), which refers to pneumonia that develops in people in the community, rather than in a hospital, usp, or assisted-living facility. About four million cases of CAP occur each year in the [place], and approximately 20 percent of people require hospitalization. LUNG FUNCTION As we breathe, air is inhaled through the nose and mouth, and travels through the trachea and the bronchi to the bronchioles. At the end of the bronchioles, there are tiny air sacs, called alveoli. Alveoli have thin, porous valentine that contain capillaries. The mouth and respiratory tract are constantly exposed to microorganisms as air is inhaled through the nose and mouth. However, the body's defenses are usually able prevent microorganisms from entering and infecting the lungs. These defenses include the immune system, the specialized shape of the nose and pharynx, the ability to cough, and fine hair-like structures called cilia located on the bronchi. Pneumonia can develop if your defenses are not adequate or the microorganism is particularly strong. As microorganisms multiply, the alveoli become inflamed and accumulate fluid. These changes lead to the symptoms of pneumonia. HIGH-RISK GROUPS Some groups of adults are at a greater risk of developing pneumonia. These include people who: ? Are greater than 65 years old ? Are cigarette smokers ? Are malnourished due to health conditions or lack of access to food ? Have underlying lung disease, including cystic fibrosis, asthma, or chronic obstructive pulmonary disease (emphysema) ? Have other underlying medical problems, including diabetes or heart disease ? Have a weakened immune system due to HIV, organ transplant, chemotherapy, or chronic steroid use ? Have difficulty coughing due to stroke, sedating drugs or alcohol, or limited mobility ? Have had a recent viral upper respiratory tract infection including influenza PNEUMONIA CAUSES Pneumonia can be caused by a variety of microorganisms, including viruses, bacteria, and less commonly, fungi. The most common cause of pneumonia in the [place] is the bacterium Streptococcus pneumoniae, or pneumococcus. Viruses are estimated to be the cause of adult CAP in at least 20 percent of cases. Fungi rarely cause pneumonia in people who are generally healthy; people with a weakened immune system (those with HIV, organ transplant patients, or those on chemotherapy) are at higher risk of fungal infection. Other organisms, such as Mycoplasma, are a common cause of mild pneumonia but can occasionally cause serious disease. PNEUMONIA SYMPTOMS Common symptoms of pneumonia include shortness of breath, pain with breathing, a rapid heart and breathing rate, nausea, vomiting, diarrhea, and a cough that often produces green or yellow sputum; occasionally the sputum is rust colored. Most people have a fever (temperature greater than 100.5?F or 38?C), although elderly people have fever less often. Shaking chills (called rigors) and a change in mental status (confusion, unclear thinking) can occur. The characteristics of pneumonia are different than those of a more common infection, acute viral bronchitis, which does not usually cause fever and does not require treatment with an antibiotic. PNEUMONIA DIAGNOSIS Pneumonia is usually diagnosed with a medical history and physical examination, and sometimes a chest x-ray. The need for further testing depends upon the severity of the illness and the person's risk of complications. Blood oxygen measurement ? Pneumonia can decrease the amount of oxygen available in the blood. As a result, a blood oxygen level is often measured by attaching a small clip to the finger or ear that uses infrared light. In those who are sicker, the oxygen level may be measured by withdrawing a sample of blood from an artery. PNEUMONIA TREATMENT The goal of treatment for patients with CAP is to treat the infection and prevent complications. Initial treatment of CAP is based upon the organism that is likely to be causing pneumonia (called empiric treatment). Most patients improve with empiric treatment. Hospital versus home care ? Most patients are treated for CAP at home with oral antibiotics. People who are seriously ill or are at increased risk for complications may be hospitalized. Hospital monitoring usually includes measurement of heart and breathing rate, temperature, and oxygen levels. Hospitalized patients are usually given intravenous (IV) antibiotics initially. The number of days spent in the hospital is variable, and depends upon how a person responds to treatment and if there are underlying medical problems. Some patients, including people with previous lung damage or disease, a weakened immune system, or infection in more than one lobe of the lungs (called multilobar pneumonia), may be slow to recover and require a longer hospitalization. Antibiotic choice ? A number of antibiotic treatment regimens exist for treatment of CAP. The choice of which antibiotic to use is based upon several factors, including the person's underlying medical problems and the likelihood of being infected with a bacteria that is resistant to specific drugs. People with certain underlying medical problems and those who have used antibiotics in the past three months have a higher risk of infection with drug resistant bacteria. For all antibiotic regimens, it is important to finish the entire course of medication and take it exactly as directed. EXPECTED RECOVERY FROM PNEUMONIA A person with pneumonia usually begins to improve after three to five days of antibiotic treatment. Improvement may be defined as feeling better or having fewer symptoms, such as cough and fever. Fatigue and a persistent, but milder, cough can last for up to one month, although most people are able to resume their usual activities within seven days. Patients treated in the hospital may require three weeks or more to resume normal activities. All patients, whether treated at home or in the hospital, should take special care of themselves during the recovery period. This includes getting adequate rest at night and taking naps during the day if needed. Patients should drink fluids to avoid becoming dehydrated; there is no specific amount of fluid recommended, but thirst is a good indicator of the need to drink more fluids. Patients should be sure to finish all of their antibiotic medication, even if they feel better after a few days. WHEN TO SEEK HELP Anyone who suspects that they have pneumonia should seek medical care as soon as possible. Pneumonia is a serious illness that can be life-threatening if not treated, especially for people who are older than 65 years, alcoholic, have underlying medical problems, or a weakened immune system. People with the following symptoms should see their healthcare provider promptly: ? Fever and cough with phlegm that does not improve or worsens ? New shortness of breath with normal daily activities ? Chest pain with breathing ? Feeling suddenly worse after a cold or the flu PREVENTION The pneumococcal vaccine is one of the most effective ways to prevent pneumonia. Smoking cessation is another important way to prevent pneumonia. Infection control ? Infection control measures can help to prevent the spread of any type of infection, including pneumonia. Infection control is most commonly practiced in healthcare settings, but is useful in the community as well. Simple practices such as frequent hand washing with soap and water or alcohol-based hand rubs can be effective. Because pneumonia is spread by contact with infected respiratory secretions, people with pneumonia should limit [id number]-dh-[id number] contact with uninfected family and friends. The mouth and nose should be covered while coughing or sneezing, and tissues should be disposed of immediately. Sneezing/coughing into the sleeve of one's clothing (at the inner elbow) is another means of containing sprays of saliva and secretions and has the advantage of not contaminating the hands. Prescriptions ordered this encounter Disp Refills Start End AZITHROMYCIN 250 MG TABLET 1 Pa* 0 12/25/2018 12/30/2018 Sig: Take 2 tablets day one, then, 1 tablet daily until gone. Encounter Status:Closed by ESTER ESQUIVEL CNP on 12/25/18 [facility] PROGRESSon 12-25-2018 Protein mass conc HNO ID: [id number] Author: Radha LuzRtJonathan Munoz Service: ? Author Type: Last Repairer Type: Progress Notes Filed: 12/25/2018 2:07 PM Note Text: Radiology Service Progress Note PATIENT NAME: Dylan Bowman DATE OF SERVICE: December 25, 2018 TIME: 2:03 PM PATIENT IDENTITY VERIFICATION COMPLETED USING TWO (2) METHODS: Patient confirmed name verbally and Date of . PATIENT GENDER DATA: Male PATIENT RELEVANT IMPLANT DATA REVIEWED: Not Applicable RADIOLOGY DEPARTMENT: General X-ray: Exam(s) Completed: Chest X-Ray PERIPHERAL IV DATA: Not applicable SIGNED BY: RT Azucena December 25, 2018 2:03 PM [facility] Protein mass conc HNO ID: [id number] Author: Ester Esquivel Service: ? Author Type: Nurse Practitioner Type: Progress Notes Filed: 12/25/2018 2:40 PM Note Text: Subjective HPI HPI Dylan Bowman is a 38 year old male who presents today for CC of cough, shortness of breath. This started 2 weeks ago, cough improving, but now having fevers. Has tried otc medication. Symptoms are worsened by nothing. No hx of asthma or diabetes. nonsmoker. .Patient presents with: Cough: x 2 weeks No past medical history on file. No past surgical history on file. ALLERGIES Patient has no known allergies. MEDICATIONS fluticasone (FLONASE) 50 mcg/Actuation NASAL nasal spray 1 [place] daily at bedtime. Benzonatate (TESSALON) 200 mg ORAL capsule Take by mouth. ONE (1) CAPSULE THREE (3) TIMES DAILY FOR COUGH No family history on file. Social History Tobacco Use - Smoking status: Never Smoker - Smokeless tobacco: Never Used Substance Use Topics - Alcohol use: Not on file - Drug use: Not on file = Review of Systems Constitutional: Negative for fever. HENT: Positive for congestion. Negative for ear pain, nosebleeds and sore throat. Respiratory: Positive for cough and shortness of breath (with cough). Negative for wheezing. Cardiovascular: Negative for chest pain. No chest pain or shortness of breath with exertion Musculoskeletal: Negative for neck pain. Objective Blood pressure 132/72, pulse (!) 135, temperature 37.9 ?C (100.2 ?F), temperature source Left Tympanic, resp. rate 16, weight 93.6 kg (206 lb 6.4 oz), SpO2 97 %. Physical Exam Constitutional: He is oriented to person, place, and time and well-developed, well-nourished, and in no distress. Non-toxic appearance. He does not have a sickly appearance. No distress. HENT: Head: Normocephalic and atraumatic. Right Ear: Hearing, tympanic membrane, external ear and ear canal normal. Left Ear: Hearing, tympanic membrane, external ear and ear canal normal. Nose: Nose normal. Mouth/Throat: Uvula is midline, oropharynx is clear and moist and mucous membranes are normal. Eyes: Pupils are equal, round, and reactive to light. Conjunctivae and lids are normal. Right eye exhibits no discharge. Left eye exhibits no discharge. No scleral icterus. Neck: Trachea normal and normal range of motion. Neck supple. Cardiovascular: Normal rate, regular rhythm and normal heart sounds. Pulmonary/Chest: Effort normal. He has rhonchi (scattered, more focally in right lower lobe). Lymphadenopathy: He has no cervical adenopathy. Neurological: He is alert and oriented to person, place, and time. Skin: No rash noted. He is not diaphoretic. ASSESSMENT/PLAN: 1. Pneumonia, unspecified organism - ICD9: 486, ICD10: J18.9 (primary diagnosis) - Discussed supportive care, given educational handout - Limit exposure to smoke and other inhaled irritants - Discussed possible red flags and when to seek medical attention - Follow up in 3-5 days or sooner if no better or worse -If you experience chest pain/shortness of breath go to ER Informed should have f/u imaging with pcp - AZITHROMYCIN 250 MG TABLET 2. Rhonchi - ICD9: 786.7, ICD10: R09.89 As above - XR CHEST 2V FRONTAL/LAT - Dictated by : LINDSEY BORGES MD Impression IMPRESSION: Small left pleural effusion and left posterior basal opacities/atelectasis. Clinical correlation and follow-up study are recommended. Prescription instructions reviewed with patient as applicable. Patient advised if symptoms do not improve or if symptoms worsen sooner, to contact the office for further evaluation by their primary care physician. Potential red flag symptoms discussed with the patient. Reviewed appropriate action plan to take if red flag symptoms occur. Patient agreeable to treatment plan. Ester Esquivel APRN.BIBLE TEACHER [facility] XR CHEST 2V FRONTAL/LATon XR CHEST 2V FRONTAL/LAT * * *Final Report* * * DATE OF EXAM: Dec 25 2018 2:07PM WOX [id number] - XR CHEST 2V FRONTAL/LAT / PROCEDURE REASON: Rhonchi * * * * Physician Interpretation * * * * EXAMINATION: CHEST RADIOGRAPH (2 VIEW FRONTAL and LATERAL) CLINICAL HISTORY: Rhonchi MQ: XC2_5 Comparison: No comparison RESULT: 1. Lines, Tubes, and Devices: N/A 2. Lungs and Pleura: Small left pleural effusion and left posterior basal opacities/atelectasis. No focal consolidation, vascular congestion, right pleural effusion or pneumothorax. The upper anterior lungs are partially obscured due to overlying arms. No obvious lung nodule or mass in the visualized lungs. 3. Cardiomediastinal silhouette: The trachea, mediastinum and cardio silhouette show no significant abnormality. 4. Other: No significant bony abnormality IMPRESSION: Small left pleural effusion and left posterior basal opacities/atelectasis. Clinical correlation and follow-up study are recommended. Energy Derivatives Trader: YINKA Transcribe Date/Time: Dec 25 2018 2:12P Dictated by : LINDSEY BORGES MD This examination was interpreted and the report reviewed and electronically signed by: LINDSEY BORGES MD on Dec 25 2018 2:13PM EST [id number] [facility] Encounters Encounter Date Encounter Type Care Provider Facility Start: 05-30-2024 End: 06-03-2024 ambulatory NONE PHYSICIAN Facility:A Start: 05-30-2024 End: 06-03-2024 Encounter for general adult medical examination without abnormal findings LAYTON RODRIGUEZ DO Facility:A Start: 12-25-2018 End: 12-27-2018 Patient encounter procedure ESTER (MIKE) [facility] Payers Date Payer Category Payer Unknown [id number] 1980 Unknown [id number] Summary Purpose Family History No Family History Records FoundNo Family History Records FoundNo Family History Records Found Advance Directives No Advanced Directives Records FoundNo Advanced Directives Records FoundNo Advanced Directives Records Found Additional Source Comments (unrecognized sect ion and content) No Status Records FoundNo Status Records FoundNo Status Records Found INFORMATION SOURCE (unrecogn ized section and content) DATE CREATED AUTHOR 01/10/2019 [facility] DATE CREATED AUTHOR AUTHOR'S ORGANIZ ATION 04/26/[address] [facility] ([place]) DATE CREATED AUTHOR AUTHOR'S ORGANIZ ATION 06/05/2024 [facility] MAIN FOR RECORDS PERTAINING TO PATIENTS WHO ARE OR HAVE BEEN ENROLLED IN A CHEMICAL DEPENDENCY/SUBSTANCEABUSE PROGRAM, SOME INFORMATION MAY BE OMITTED. This clinical summary was aggregated from multiple sources. Caution should be exercised in using it in the provision of clinical care. This summary normalizes information from multiple sources, and as a consequence, information in this document may materially change the coding, format and clinical context of patient data. In addition, data may be omitted in some cases. CLINICAL DECISIONS SHOULD BE BASED ON THE PRIMARY CLINICAL RECORDS. [employer] [facility]. provides no warranty or guarantee of the accuracy or completeness of information in this document.
== END | disposition home or self-care (01) ==
PROVIDERS: Referring Provider Otolaryngology; Visit Provider Otolaryngology
DX: J32.8 Other chronic sinusitis (principal); R09.81 Nasal congestion; J33.0 Polyp of nasal cavity
CPT/HCPCS: 70486

== ENCOUNTER 2025-07-31 09:11 | Day surgery (SDC) | payer OTHER, SELFPAY ==
--- NOTE | 2025-07-24 15:56 | PAT.ANE_ITS ---
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 When Was Last Pacemaker Check QUESTION #4 FULL TEXT: You/Your Family Experience fever (hyperthermia) with Anesthesia Last Oral Intake Last Oral intake: Last Oral Intake NPO since Meds taken in AM with sips of water? 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 - secondary english teacher: PONV - secondary english teacher Female No 07/24/25 14:17 HX of Motion Sickness No 07/24/25 14:17 HX of N/V After Surgery No 07/24/25 14:17 Non-Smoker Yes 07/24/25 14:17 Duration of Surgery greater No 07/24/25 14:17 than 60 minutes Number of Risk Factors 1 07/24/25 14:17 PONV Score Low Risk 07/24/25 14:17 Respiratory Assessment Respiratory Assessment - secondary english teacher: Respiratory Tract Infection Hx - secondary english teacher Hx Respiratory Tract Infection No 07/24/25 14:17 STOP Sleep Apnea STOP Sleep Apnea - secondary english teacher: STOP Sleep Apnea - secondary english teacher Hx Hypertension No 07/24/25 14:17 Hx Sleep Apnea No 07/24/25 14:17 CPAP BIPAP Do you snore loudly (louder No 07/24/25 14:17 than talking or can be heard Do you often feel tired/ No 07/24/25 14:17 fatigued/ sleepy during daytime? Has anyone observed you stop No 07/24/25 14:17 breathing during sleep? STOP Results Negative 07/24/25 14:17 QUESTION #5 FULL TEXT : Do you snore loudly (louder than talking or can be heard through closed doors)? 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 Specify any problems Hx of Preganancy in last 3 N/A 07/24/25 14:17 Months Nurse Filling Out Transfusion NBUCHER 07/24/25 14:17 & Questions: Date: 07/24/25 07/24/25 14:17 Time: 14:18 07/24/25 14:17 Patient unable to answer at this time (ie. confused, unrespo /Reproduction History /Reproductive History - secondary english teacher: /Reproductive Hx- secondary english teacher Hx Now No 07/24/25 14:17 Gestational Age (in weeks): EDC: Hx Hx Para Hx Section SAB No 07/24/25 14:17 Does the father of the baby or his family experience fever w Father of the baby Malignant Hypertension history comment PFSH Medical History Wears glasses Former smoker Home Medications ?Medication ?Instructions ?Recorded ?Last Taken ?Type fluticasone propionate 50 1 spray intranasal DAILY PRN 07/24/25 Unknown History mcg/actuation nasal allergy symptoms spray,suspension (24 Hour Allergy Relief) Allergy/AdvReac Type Severity Reaction Status Date / Time No Known Allergies Allergy Verified 07/24/25 14:16 Surgical History (Updated 07/24/25 @ 14:24 by Winifred Ku) History of hernia repair History of sinus surgery Social History Smoking Status: Former smoker Audit: Pertinent Findings Pertinent Findings EKG Perinent findings: 12/27/2018. Sinus tachycardia 114 bpm. Nonspecific T wave abnormality. Recommendation Anesthesia Recommendation Anesthesia recommendation: OPTIMIZED for anesthesia (By the end of the admission in 2019, patient's heart rate was 83.)
[2025-07-31] VITALS (11 sets, daily range): BP systolic 133–149; BP diastolic 91–103; PULSE 71–92; RESP 14–16; TEMP 36.3–36.7; O2SAT 5–98; BMI 30.4
--- NOTE | 2025-07-31 09:27 | EKG12_ITS ---
Test Reason : PREOP Blood Pressure : */* mmHG Vent. Rate : 91 BPM Atrial Rate : 91 BPM P-R Int : 134 ms QRS Dur : 82 ms QT Int : 374 ms P-R-T Axes : 61 3 78 degrees QTcB Int : 460 ms Normal sinus rhythm Nonspecific ST abnormality Abnormal ECG Confirmed by Ziyad José ([id number]), features editor GRISELDA LEE ([id number]) on 08/02/2025 2:03:07 PM Referred By: Bronson Jones Confirmed By: Ziyad José
[2025-07-31] MEDS: Lactated Ringers 1,000 ML 15 ML IV (09:41)
--- NOTE | 2025-07-31 10:30 | PCM.PRE.AN2 ---
ASA Classification* ASA Classification ASA Classification: 1 Assessment & Plan Anesthesia* Anesthesia Assessment Anesthesia Assessment: Discussed sedation and/or anesthesia options, risks, benefits, and alternatives with patient/parents/legal guardian/POA. Questions invited. The patient/parents/legal guardian/POA seems to understand and agrees to proceed with anesthesia plan. Reviewed the physical assessment, medical history, allergy history and patient home medications list prior to surgery/procedure/anesthetic and documented any changes. Performed airway and anesthesia risk assessments. Anesthesia Type Anesthesia Type: General History Source History Obtained from:: Patient and Chart Anesthesia Focused Assessment* Temperature: 98.0 F Pulse Rate: 89 Blood Pressure: 139/92 Respiratory Rate: 16 Pulse Ox: 98 Oxygen Delivery Method: Room Air Airway Assessment Mouth opens: >3 cm Mallampati Score: II Teeth Condition: Intact Neck Range of motion (ROM): Full ROM Labs Anesthesia Preop lab: CBC WBC, (4.4-11.0) 13.2 K/mm3 H 12/27/18, 20:25 RBC, (4.6-6.2) 4.27 M/mm3 L 12/27/18, 20:25 Hgb, (13.0-16.5) 12.6 g/dl L 12/27/18, 20:25 Hct, (40-54) 37.6 % L 12/27/18, 20:25 Plt Count, (150-450) 330 K/mm3 12/27/18, 20:25 CHEMISTRY Potassium, (3.5-5.1) 3.5 mmol/L 12/27/18, 20:25 Sodium, (136-145) 138 mmol/L 12/27/18, 20:25 BUN, (7-18) 8 mg/dL 12/27/18, 20:25 Creatinine, (0.70-1.30) 1.04 mg/dL 12/27/18, 20:25 Glucose, (74-106) 113 mg/dL H 12/27/18, 20:25 COAG Pre-Assessment Diagnosis/Proposed Procedure Planned Operative Procedure(s): (N/A) Revision Functional Endoscopic Sinus Surgery with Navigation Anesthesia History 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 When Was Last Pacemaker Check QUESTION #4 FULL TEXT: You/Your Family Experience fever (hyperthermia) with Anesthesia Last Oral Intake Last Oral intake: Last Oral Intake NPO since 20:00 07/31/25 09:37 Meds taken in AM with sips of No 07/31/25 09:37 water? 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 - parking technician Female No 07/24/25 14:17 HX of Motion Sickness No 07/24/25 14:17 HX of N/V After Surgery No 07/24/25 14:17 Non-Smoker Yes 07/24/25 14:17 Duration of Surgery greater No 07/24/25 14:17 than 60 minutes Number of Risk Factors 1 07/24/25 14:17 PONV Score Low Risk 07/24/25 14:17 Height & Weight Height & Weight: Anesthesia: Height & Weight Height 5 ft 10 in 07/31/25 09:37 Weight: 96.343 kg 07/31/25 09:37 Body Mass Index (BMI) 30.4 07/31/25 09:37 Respiratory Assessment Respiratory Assessment - parking technician: Respiratory Tract Infection Hx - parking technician Hx Respiratory Tract Infection No 07/24/25 14:17 STOP Sleep Apnea STOP Sleep Apnea - parking technician: STOP Sleep Apnea - parking technician Hx Hypertension No 07/24/25 14:17 Hx Sleep Apnea No 07/24/25 14:17 CPAP BIPAP Do you snore loudly (louder No 07/24/25 14:17 than talking or can be heard Do you often feel tired/ No 07/24/25 14:17 fatigued/ sleepy during daytime? Has anyone observed you stop No 07/24/25 14:17 breathing during sleep? STOP Results Negative 07/24/25 14:17 QUESTION #5 FULL TEXT : Do you snore loudly (louder than talking or can be heard through closed doors)? 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 Specify any problems Hx of Preganancy in last 3 N/A 07/24/25 14:17 Months Nurse Filling Out Transfusion NBUCHER 07/24/25 14:17 & Questions: Date: 07/24/25 07/24/25 14:17 Time: 14:18 07/24/25 14:17 Patient unable to answer at this time (ie. confused, unrespo /Reproduction History /Reproductive History - parking technician: /Reproductive Hx- parking technician Hx Now No 07/24/25 14:17 Gestational Age (in weeks): EDC: Hx Hx Para Hx Section SAB No 07/24/25 14:17 Does the father of the baby or his family experience fever w Father of the baby Malignant Hypertension history comment Active Medications Active Medications: Current Medications Generic Name Dose Route Start Last Admin Trade Name Freq PRN Reason Stop Dose Admin Clindamycin Phosphate 900 mg in 50 mls @ 75 mls/hr 07/31/25 10:45 Cleocin IV 07/31/25 11:24 INTRAOP ONE Lactated Ringer's 1,000 mls @ 15 mls/hr 07/31/25 09:30 07/31/25 09:41 IV 15 mls/hr .Q48H JOSEPH Administration PFSH Medical History Wears glasses Former smoker Home Medications ?Medication ?Instructions ?Recorded ?Last Taken ?Type fluticasone propionate 50 1 spray intranasal DAILY PRN 07/24/25 Unknown History mcg/actuation nasal allergy symptoms spray,suspension (24 Hour Allergy Relief) doxycycline hyclate 100 mg capsule 100 mg PO BID 07/31/25 07/30/25 History methylprednisolone 4 mg tablet 4 mg PO DAILY 07/31/25 07/30/25 History (Medrol) Allergy/AdvReac Type Severity Reaction Status Date / Time No Known Allergies Allergy Verified 07/31/25 09:30 Surgical History History of hernia repair History of sinus surgery Social History Smoking Status: Former smoker Review of Systems (Anesthesia) ROS Narrative System reviewed and no additional complaints, except as documented.
--- NOTE | 2025-07-31 10:35 | PCM.PRE.AN2 ---
ASA Classification* ASA Classification ASA Classification: 1 Assessment & Plan Anesthesia* Anesthesia Assessment Anesthesia Assessment: Discussed sedation and/or anesthesia options, risks, benefits, and alternatives with patient/parents/legal guardian/POA. Questions invited. The patient/parents/legal guardian/POA seems to understand and agrees to proceed with anesthesia plan. Reviewed the physical assessment, medical history, allergy history and patient home medications list prior to surgery/procedure/anesthetic and documented any changes. Performed airway and anesthesia risk assessments. Anesthesia Type Anesthesia Type: General History Source History Obtained from:: Patient and Chart Anesthesia Focused Assessment* Temperature: 98.0 F Pulse Rate: 89 Blood Pressure: 139/92 Respiratory Rate: 16 Pulse Ox: 98 Oxygen Delivery Method: Room Air Airway Assessment Mouth opens: >3 cm Mallampati Score: II Teeth Condition: Intact Neck Range of motion (ROM): Full ROM Labs Anesthesia Preop lab: CBC WBC, (4.4-11.0) 13.2 K/mm3 H 12/27/18, 20:25 RBC, (4.6-6.2) 4.27 M/mm3 L 12/27/18, 20:25 Hgb, (13.0-16.5) 12.6 g/dl L 12/27/18, 20:25 Hct, (40-54) 37.6 % L 12/27/18, 20:25 Plt Count, (150-450) 330 K/mm3 12/27/18, 20:25 CHEMISTRY Potassium, (3.5-5.1) 3.5 mmol/L 12/27/18, 20:25 Sodium, (136-145) 138 mmol/L 12/27/18, 20:25 BUN, (7-18) 8 mg/dL 12/27/18, 20:25 Creatinine, (0.70-1.30) 1.04 mg/dL 12/27/18, 20:25 Glucose, (74-106) 113 mg/dL H 12/27/18, 20:25 COAG Pre-Assessment Diagnosis/Proposed Procedure Planned Operative Procedure(s): (N/A) Revision Functional Endoscopic Sinus Surgery with Navigation Anesthesia History 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 When Was Last Pacemaker Check QUESTION #4 FULL TEXT: You/Your Family Experience fever (hyperthermia) with Anesthesia Last Oral Intake Last Oral intake: Last Oral Intake NPO since 20:00 07/31/25 09:37 Meds taken in AM with sips of No 07/31/25 09:37 water? 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 Female No 07/24/25 14:17 HX of Motion Sickness No 07/24/25 14:17 HX of N/V After Surgery No 07/24/25 14:17 Non-Smoker Yes 07/24/25 14:17 Duration of Surgery greater No 07/24/25 14:17 than 60 minutes Number of Risk Factors 1 07/24/25 14:17 PONV Score Low Risk 07/24/25 14:17 Height & Weight Height & Weight: Anesthesia: Height & Weight Height 5 ft 10 in 07/31/25 09:37 Weight: 96.343 kg 07/31/25 09:37 Body Mass Index (BMI) 30.4 07/31/25 09:37 Respiratory Assessment Respiratory Assessment - dive superintendent: Respiratory Tract Infection Hx - dive superintendent Hx Respiratory Tract Infection No 07/24/25 14:17 STOP Sleep Apnea STOP Sleep Apnea - dive superintendent: STOP Sleep Apnea - dive superintendent Hx Hypertension No 07/24/25 14:17 Hx Sleep Apnea No 07/24/25 14:17 CPAP BIPAP Do you snore loudly (louder No 07/24/25 14:17 than talking or can be heard Do you often feel tired/ No 07/24/25 14:17 fatigued/ sleepy during daytime? Has anyone observed you stop No 07/24/25 14:17 breathing during sleep? STOP Results Negative 07/24/25 14:17 QUESTION #5 FULL TEXT : Do you snore loudly (louder than talking or can be heard through closed doors)? 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 Specify any problems Hx of Preganancy in last 3 N/A 07/24/25 14:17 Months Nurse Filling Out Transfusion NBUCHER 07/24/25 14:17 & Questions: Date: 07/24/25 07/24/25 14:17 Time: 14:18 07/24/25 14:17 Patient unable to answer at this time (ie. confused, unrespo /Reproduction History /Reproductive History - dive superintendent: /Reproductive Hx- dive superintendent Hx Now No 07/24/25 14:17 Gestational Age (in weeks): EDC: Hx Hx Para Hx Section SAB No 07/24/25 14:17 Does the father of the baby or his family experience fever w Father of the baby Malignant Hypertension history comment Active Medications Active Medications: Current Medications Generic Name Dose Route Start Last Admin Trade Name Freq PRN Reason Stop Dose Admin Clindamycin Phosphate 900 mg in 50 mls @ 75 mls/hr 07/31/25 10:45 Cleocin IV 07/31/25 11:24 INTRAOP ONE Lactated Ringer's 1,000 mls @ 15 mls/hr 07/31/25 09:30 07/31/25 09:41 IV 15 mls/hr .Q48H JOSEPH Administration PFSH Medical History Wears glasses Former smoker Home Medications ?Medication ?Instructions ?Recorded ?Last Taken ?Type fluticasone propionate 50 1 spray intranasal DAILY PRN 07/24/25 Unknown History mcg/actuation nasal allergy symptoms spray,suspension (24 Hour Allergy Relief) doxycycline hyclate 100 mg capsule 100 mg PO BID 07/31/25 07/30/25 History methylprednisolone 4 mg tablet 4 mg PO DAILY 07/31/25 07/30/25 History (Medrol) Allergy/AdvReac Type Severity Reaction Status Date / Time No Known Allergies Allergy Verified 07/31/25 09:30 Surgical History History of hernia repair History of sinus surgery Social History Smoking Status: Former smoker Review of Systems (Anesthesia) ROS Narrative System reviewed and no additional complaints, except as documented.
--- NOTE | 2025-07-31 10:40 | DCINST_ITS ---
Discharge Instructions DC O2, CPAP, BIPAP needs Home O2 Discharge instructions: No Dressing / Incision Discharge Activity: Return to Normal Activity Dressing / Incision Call your doctor if your incision/area has: Sudden Increased Bleeding Additional Dressing/Incision Instructions:: irrigate nose 5 times / day Follow Up Care Please Follow Up With: Bronson Jones MD When: 1 week Test Results: Test results from this visit will be discussed in further detail at your follow- up appointment, if applicable. Discharge Plan Admission Attending Provider: Bronson Jones Primary Care Provider: Gregory Fournier Instructions Print Language: Maltese Discharge Orders/Prescriptions Prescriptions: No Action fluticasone propionate [24 Hour Allergy Relief] 50 mcg/actuation spray,suspension 1 spray intranasal DAILY PRN (Reason: allergy symptoms) Rx Instructions: administer into each nostril methylprednisolone [Medrol] 4 mg tablet 4 mg PO DAILY Patient Comments: dose pack pt is on day 5. doxycycline hyclate 100 mg capsule 100 mg PO BID Referrals / Follow Up: Care Physician,No Primary [Non-Staff, Medical] Disposition Disposition (needs filled in before D/C Order can be placed): .Default Discharge Orders: Discharge Patient (Routine); Ordered 07/31/25 Ordered By: Dr. Bronson Jones
--- NOTE | 2025-07-31 10:41 | OP.PCM_ITS ---
Operative Report (Standard) Operative Information Date of Procedure: 07/31/25 Pre-Operative Diagnosis: 1. Chronic pansinusitis 2. Sinonasal polyposis Post-Operative Diagnosis: 1. Chronic pansinusitis 2. Sinonasal polyposis Surgery/Procedure Performed: 1. endoscopic maxillary antrostomy with removal of contents, right and left 2. endoscopic total ethmoidectomy, right and left 3. endoscopic sphenoidotomy with removal of contents, right and left 4. endoscopic frontal sinus exploration removal of contents, right and left 5. Extensive removal sinonasal polyps, right and left 6. image guidance CT navigation trial manager: No Type of Anesthesia: General RN Documented Start/Stop Times: Operation Date: 07/31/25 10:45 Case Time Into Pre-Op 07/31/25 09:20 Procedure Start Time: 11:40 Procedure Stop Time: 12:24 Select all DRAINS/GRAFTS/IMPLANTS that apply: None Estimated Blood Loss: 5cc Specimen collected: Yes Description of specimen(s) removed: right and left sinus contents Description of surgery: On the day of the procedure, after appropriate informed consent was obtained, the patient was brought to the operating room and placed in a supine position on the operating room table. The patient was placed under general endotracheal anesthesia by the anesthesiologist. The endotracheal tube was secured. The eyes were taped. The table was rotated 90 degrees towards the surgeon. Lacri-Lube was placed in the eyes and Tegaderm was placed over the eyes.? CT guided image navigation was set up; accuracy was confirmed. the zero degree endoscope was used to evaluate the nasal cavity.? the superior attachment of the right and left middle turbinate and uncinate processes were injected with lidocaine/epinephrine.?? the left nasal cavity was evaluated.? the middle turbinate was medialized.? Extensive polyps were removed from the middle meatus, sphenoethmoidal recess, frontal recess and ethmoid chambers using the microdebrider.? a revision maxillary antrostomy and uncinectomy were performed with a bonny elevator and a kim cut.? the antrostomy was widened with a back-biter.? purulent material was evacuated.? A revision total ethmoidectomy was performed with a curette and an upgoing blakesley.? this was taken superiorly to the skull base and laterally to the lamina.? a stankewicz maneuver was performed and no laminar defect was noted.? the natural sphenoid os was widened with the microdebrider and contents were evacuated.? fungus was removed from the sphenoethmoidal recess.? the frontal recess was explored and contents were evacuated.? hemostasis was achieved with suction cautery; sami was placed.? the right nasal cavity was evaluated.? the middle turbinate was medialized.? Extensive polyps were removed from the middle meatus, sphenoethmoidal recess, frontal recess and ethmoid chambers using the microdebrider.? a revision maxillary antrostomy and uncinectomy were performed with a bonny elevator and a kim cut.? the antrostomy was widened with a back-biter.? purulent material was evacuated.? A revision total ethmoidectomy was performed with a curette and an upgoing blakesley.? this was taken superiorly to the skull base and laterally to the lamina.? a stankewicz maneuver was performed and no laminar defect was noted.? the natural sphenoid os was widened with the microdebrider and contents were evacuated.? fungus was removed from the sphenoethmoidal recess.? the frontal recess was explored and contents were evacuated.? hemostasis was achieved with suction cautery; sami was placed.? nasogastric tube was inserted orally and contents were evacuated.? the table was rotated 90 degrees toward the anesthesiologist and? was subsequently extubated uneventfully.? he was transferred to the PACU in stable condition. Surgical Findings: n/a Complications Complications: No
--- NOTE | 2025-07-31 10:45 | NASAL_PTH ---
PATIENT: DYLAN SILVA LOC: [facility] [place] U#:[id number] AGE/SX: 45/M ROOM: RE07/31/[address]: Dr. Bronson Jones MD : 1980 BED: DIS: 07/31/2025 SPEC #: [id number] RECD: 07/31/25 13:15 STATUS: CHIKIS REMaegan #: [id number] ASHLYN: 07/31/25 10:[address]: Bronson Jones DEPT: SURGICAL PATHOLOGY RECD BY: Ivy Lomax ENTERED: 08/01/25 06:39 SP TYPE: NASAL SPEC OTHR DR: Dr. Gregory Fournier DO Tissues: A - Ethmoid sinus, NOS B - Ethmoid sinus, NOS Procedures: Surgery Specimen Level IV HEADER OPERATION: Revision functional endoscopic sinus surgery with Navigation PRE-OP DIAGNOSIS: Nasal congestion, polyp of nasal cavity, chronic sinusitis TISSUE SUBMITTED: A- Left nasal contents, B- Right nasal contents MICROSCOPIC DIAGNOSIS A. Nose, left, contents, excision: - Polypoid fragment of edematous sinonasal mucosa with chronic inflammation and prominent eosinophils, consistent with inflammatory polyp. - Scant unremarkable trabecular bone. B. Nose, right, contents, excision: - Fragments of edematous sinonasal mucosa with chronic inflammation including eosinophils. MICROSCOPIC DESCRIPTION Slides are reviewed. GROSS DESCRIPTION Received in 2 formalin containers labeled with the patient's name and date of . Designated as: A. Left nasal content is a 1.7 x 1.1 x 0.3 cm rushing to red edematous polypoid tissue fragment admixed with additional rushing tissue fragments, collectively measuring 2.0 x 1.1 x 0.2 cm in aggregate. Entirely submitted in 1 cassette. B. Right nasal content is a 0.5 x 0.3 x 0.1 cm aggregate of rushing-pink tissue fragments. Entirely submitted in 1 cassette. VT 07/31/2025 CPT:[id number]
[2025-07-31] MEDS: Lactated Ringers 500 ML IV (11:23)
[2025-07-31] MEDS: Lidocaine 1% (5 ml sdv) 5 ML Vial 10 ML IV (11:29)
[2025-07-31] MEDS: fentaNYL 100 MCG/2 ML Ampul IV (11:29)
[2025-07-31] MEDS: Oxymetazoline 0.05% 1 SPRAY SPRAY.BTL INTRANASAL (11:46)
[2025-07-31] MEDS: Lidocaine 1% /Epi 1:100 (20ml) 20 ML Vial INFILT (11:46)
[2025-07-31] MEDS: dexMEDEtomidine 200 MCG/2 ML ML 32 MCG IV (12:20)
--- NOTE | 2025-07-31 12:40 | PCM.POST.ANE ---
Anesthesia: Postop Eval I Current Vital Signs Temperature: 97.4 F Pulse Rate: 80 Blood Pressure: 135/96 Respiratory Rate: 16 Pulse Ox: 94 Oxygen Delivery Method: Room Air Assessment Airway patent: Yes Spontaneous unlabored respirations: Yes Mental status: Awake and Calm nausea: No Vomiting: No Anesthesia Complication: No Fluid Hydration Crystalloid volume administer (ml): 500 Total IV fluid infused: 500 Progress Note Anesthesia document: Postop Eval 1 completed: Yes
--- NOTE | 2025-07-31 15:32 | POSTOPAN2_ITS ---
Anesthesia Postop Eval I Sum Postop Eval Completion status Anesthesia document: Postop Eval 1 completed: Yes Anesthesia Postop Eval I Summary Anesthesia Postop Eval I Summary: Anesthesia Postop Eval I: Assessment Summary Airway patent Yes 07/31/25 12:41 SUBSTATION SUPERVISOR.[email or web address] Spontaneous unlabored Yes 07/31/25 12:41 SUBSTATION SUPERVISOR.[email or web address] respirations Mental status Awake,Calm 07/31/25 12:41 SUBSTATION SUPERVISOR.GDOTT nausea No 07/31/25 12:41 SUBSTATION SUPERVISOR.GDOTT Vomiting No 07/31/25 12:41 SUBSTATION SUPERVISOR.GDOTT Anesthesia Postop Eval I: Fluid Summary Crystalloid volume administer 500 07/31/25 12:41 SUBSTATION SUPERVISOR.GDOTT (ml) Colloids volume administered ( ml) Blood Product volume administered (ml) Total IV fluid infused 500 07/31/25 12:41 SUBSTATION SUPERVISOR.GDOTT Anesthesia Postop Eval I: Summary Notes Anesthesia Complication No 07/31/25 12:41 SUBSTATION SUPERVISOR.GDOTT Anesthesia Complication Comment: Post-operative progress note Anesthesia: Postop Eval II Evaluation Mental status: Awake and Calm Pain Level: 1 nausea: No Vomiting: No Complications Anesthesia Complication: No
--- NOTE | 2025-07-31 15:32 | PCM.POSTANE2 ---
Anesthesia Postop Eval I Sum Postop Eval Completion status Anesthesia document: Postop Eval 1 completed: Yes Anesthesia Postop Eval I Summary Anesthesia Postop Eval I Summary: Anesthesia Postop Eval I: Assessment Summary Airway patent Yes 07/31/25 12:41 FAMILY RESOURCE COORDINATOR.[email or web address] Spontaneous unlabored Yes 07/31/25 12:41 FAMILY RESOURCE COORDINATOR.GDOTT respirations Mental status Awake,Calm 07/31/25 12:41 FAMILY RESOURCE COORDINATOR.GDOTT nausea No 07/31/25 12:41 FAMILY RESOURCE COORDINATOR.GDOTT Vomiting No 07/31/25 12:41 FAMILY RESOURCE COORDINATOR.GDOTT Anesthesia Postop Eval I: Fluid Summary Crystalloid volume administer 500 07/31/25 12:41 FAMILY RESOURCE COORDINATOR.GDOTT (ml) Colloids volume administered ( ml) Blood Product volume administered (ml) Total IV fluid infused 500 07/31/25 12:41 FAMILY RESOURCE COORDINATOR.GDOTT Anesthesia Postop Eval I: Summary Notes Anesthesia Complication No 07/31/25 12:41 FAMILY RESOURCE COORDINATOR.GDOTT Anesthesia Complication Comment: Post-operative progress note Anesthesia: Postop Eval II Evaluation Mental status: Awake and Calm Pain Level: 1 nausea: No Vomiting: No Complications Anesthesia Complication: No
== END 2025-07-31 14:09 | disposition home or self-care (01) ==
LOC: SDC 09:12 → AC 09:16
PROVIDERS: PCP Family Medicine; Referring Provider Otolaryngology; Visit Provider Otolaryngology
PROC: (CPT 31255; principal; 2025-07-31 10:15)
DX: J32.4 Chronic pansinusitis (principal); J33.8 Other polyp of sinus; R09.81 Nasal congestion
CPT/HCPCS: 31255; 31267; 00160; 88305; 93005; J2405